=== PATIENT | female | born 1985 | race Caucasian/White ===

== ENCOUNTER 2021-02-27 16:12 | Inpatient (IN) | payer MEDICARE, MEDICAID, SELFPAY ==
[2021-02-27] VITALS (7 sets, daily range): BP systolic 98–179; BP diastolic 76–122; PULSE 91–103; RESP 16–18; TEMP 36.4; O2SAT 94–96; BMI 34.2; BMI 32.8
--- NOTE | ~2021-02-27 | CT_ITS ---
EXAMINATION: CT HEAD WITHOUT CONTRAST CLINICAL INFORMATION: Status post anticoagulation evaluate for hemorrhagic conversion of brain infarct COMPARISON: CT head 02/27/2021 TECHNIQUE: Contiguous axial imaging was performed from the skull base to vertex without intravenous administration of contrast. Coronal and sagittal reformatted images are performed at the CT scanner. [This CT examination was performed using dose optimization techniques as appropriate, variously including the following: *Automated exposure control *Adjustment of mA and/or kV according to patient size (this includes techniques or standardized protocols for targeted exams where dose is matched to indication/reason for exam; i.e. extremities or head) *Use of iterative reconstruction technique] DLP: 873 mGy-cm. FINDINGS: There is no intracranial hemorrhage. The small infarct in the left posterior parasagittal parietal lobe is unchanged. No change in the chronic appearing small infarct in the right occipital lobe. There are change in the small chronic infarct in the right cerebellum and right external capsule. No extra-axial fluid collections are identified. No hydrocephalus or mass effect. Little-white differentiation is maintained. There is no osseous abnormality. CT/CT head/brain wo con IMPRESSION: No acute intracranial hemorrhage. No change in the infarct in the left posterior parasagittal parietal lobe.
--- NOTE | ~2021-02-27 | MR_ITS ---
EXAMINATION: MR BRAIN WITHOUT AND WITH CONTRAST CLINICAL INFORMATION: Multiple infarcts on CT. COMPARISON: Head CT 02/28/2021. TECHNIQUE: Multiplanar, multisequence imaging of the brain was performed before and after the intravenous administration of 9 mL of Gadavist. FINDINGS: Areas of elevated diffusivity with associated heterogeneous partly gyriform enhancement are seen within the left parietal lobe and right occipital lobe, most compatible with subacute infarcts. A subacute lacunar infarct is seen within the right cerebellum. Small chronic infarct is seen in the right cerebellum and just lateral to the right putamen and within the external capsule region. The ventricles are normal in size and configuration without evidence of hydrocephalus. There is no mass or mass effect. There is no hemorrhage. The cerebellar tonsils are normally positioned above the foramen magnum. No masslike enhancement is seen. The major arterial flow voids appear preserved at the skull base. There is surgical mesh mucosal thickening within the maxillary sinuses with associated layering fluid. A small amount of mastoid fluid is present bilaterally. MR/MR head/brain wo/w con IMPRESSION: Foci of elevated diffusion signal and associated enhancement is seen in the left frontal lobe and right occipital lobe, most typical of infarcts in the subacute stage. Consider follow-up MRI in 6-8 weeks to document resolution of enhancement. Small chronic infarct is seen in the right cerebellum and in the right external capsule region. No evidence of acute infarction. Given the multiple vascular territories of subacute and chronic infarction a cardioembolic etiology is suspected.
--- NOTE | ~2021-02-27 | XR_ITS ---
EXAMINATION: XR CHEST CLINICAL INFORMATION: Shortness of breath COMPARISON: None TECHNIQUE: Frontal view of the chest was obtained. FINDINGS: No significant abnormality is noted involving the heart, lungs, mediastinum, bony thorax or soft tissues. XR/XR chest 1V IMPRESSION: Unremarkable examination.
--- NOTE | ~2021-02-27 | CT_ITS ---
EXAMINATION: CT ABDOMEN AND PELVIS WITHOUT CONTRAST CLINICAL INFORMATION: Acute renal and hepatic failure. COMPARISON: None TECHNIQUE: Multidetector volumetric imaging was performed from the superior aspect of the liver through the pubic symphysis. Sagittal and coronal reformatted images were obtained on the technologist's workstation. This CT examination was performed using dose optimization techniques as appropriate, variously including the following: *Automated exposure control *Adjustment of mA and/or kV according to patient size (this includes techniques or standardized protocols for targeted exams where dose is matched to indication/reason for exam; i.e. extremities or head) *Use of iterative reconstruction technique DLP: 740 mGy-cm FINDINGS: LUNG BASES: The visualized lung bases are unremarkable. LIVER, GALLBLADDER, AND BILIARY TREE: The liver is enlarged measuring 23 cm CC dimension. The liver is normal in shape and attenuation. No focal hepatic lesion or biliary ductal dilatation is present. Cholecystectomy. PANCREAS: Mild fatty atrophy of the pancreas with no focal abnormality. No ductal dilatation. SPLEEN: Unremarkable. ADRENAL GLANDS: Unremarkable. KIDNEYS AND URETERS: The kidneys are normal in size, shape, and attenuation. No hydronephrosis, hydroureter, or calculi seen. No perinephric stranding. BLADDER: Unremarkable. GASTROINTESTINAL TRACT: The small and large bowel are unremarkable. The appendix is unremarkable. ABDOMINAL WALL: No significant hernia is appreciated. LYMPH NODES: Normal. VASCULAR: Unremarkable. PELVIC VISCERA: Anteverted uterus. There is an IUD in place in the uterus which appears flipped in positioning, with the cross of the T portion at the lower uterine segment and the straight portion near the fundus. OSSEOUS STRUCTURES: No acute or suspicious osseous abnormality. CT/CT abdomen pelvis wo con IMPRESSION: No acute findings in the abdomen or pelvis. No inflammatory changes. There is hepatomegaly. No hepatic lesion. IUD within the uterus. The IUD position is flipped, with the cross T portion at the lower uterine segment in the straight portion extending toward the fundus.
--- NOTE | ~2021-02-27 | CT_ITS ---
EXAMINATION: CT CHEST WITHOUT CONTRAST CLINICAL INFORMATION: HYPOXIA ? mass ? occult pna? pericardial fluid COMPARISON: Chest x-ray 02/27/2021. CT abdomen pelvis 02/27/2021 TECHNIQUE: Multidetector volumetric CT imaging of the chest was done. Axial MIP volume rendering provided. Sagittal and coronal reformatted images were obtained. This CT examination was performed using dose optimization techniques as appropriate, variously including the following: *Automated exposure control *Adjustment of mA and/or kV according to patient size (this includes techniques or standardized protocols for targeted exams where dose is matched to indication/reason for exam; i.e. extremities or head) *Use of iterative reconstruction technique DLP: 350 mGy-cm FINDINGS: LUNGS: The lungs are clear with no evidence of inflammation or nodules. MEDIASTINUM: No mediastinal mass or significant lymphadenopathy. The heart size is normal. No pericardial effusion. PLEURA: There is no pleural effusion. No pleural mass or thickening. AXILLA: No mass or significant lymphadenopathy. UPPER ABDOMEN: Status post Cholecystectomy.. Visualized portions of liver, spleen, pancreas and kidneys are unremarkable. OSSEOUS STRUCTURES: Unremarkable. CT/CT chest wo con IMPRESSION: Normal CT of chest.
--- NOTE | ~2021-02-27 | US_ITS ---
EXAMINATION: US VENOUS ULTRASOUND WITH DOPPLER LOWER EXTREMITY, BILATERAL CLINICAL INFORMATION: Elevated d-dimer. Hypoxemia COMPARISON: None TECHNIQUE: Ultrasound of the deep veins is performed from the hip to the calf with compression sonography and color and pulse Doppler assessment. Spectral analysis with color-flow imaging is performed. FINDINGS: RIGHT: There is normal venous compression and respiratory variation and augmented flow. The visualized common femoral vein, superficial femoral vein, profunda femoral vein, popliteal vein, and the trifurcation region shows no evidence of deep venous thrombosis. There is no significant popliteal fossa cyst. LEFT: There is normal venous compression and respiratory variation and augmented flow. The visualized common femoral vein, superficial femoral vein, profunda femoral vein, popliteal vein, and the trifurcation region shows no evidence of deep venous thrombosis. There is no significant popliteal fossa cyst. If the patient's symptoms persist, followup ultrasound in 5 days 7 days might be of value to exclude proximal propagation from a non-visualized calf vein. US/US venous duplex LE BI IMPRESSION: No DVT demonstrated in the bilateral lower extremity.
--- NOTE | ~2021-02-27 | NM_ITS ---
EXAMINATION: NM LUNG IMAGE PERFUSION CLINICAL INFORMATION: Hypoxemia. Elevated D-dimer. Rule out pulmonary embolism. COMPARISON: Previous chest x-ray and chest CT without contrast 02/27/2021. TECHNIQUE: The patient was administered 4 mCi of technetium 99m labeled MAA for perfusion imaging. This was performed in multiple projections. Ventilation imaging was not performed. FINDINGS: There is heterogeneous perfusion with multiple bilateral small to moderate segmental perfusion defects seen, left side greater than right. No corresponding lung abnormality is seen on chest x-ray or chest CT scan and this cannot be compared with ventilation imaging. This is an intermediate to high probability scan for pulmonary embolism. NM/NM pul perfusion IMPRESSION: Intermediate to high probability scan for pulmonary embolism. Preliminary reading of multiple subsegmental defects favoring high probability was provided by Dr. Sanchez to Dr. Roche at 6:53 PM on 02/28/2021.
--- NOTE | ~2021-02-27 | CT_ITS ---
EXAMINATION: CT HEAD WITHOUT CONTRAST CLINICAL INFORMATION: Headache with hypertension COMPARISON: None TECHNIQUE: Contiguous axial imaging was performed from the skull base to vertex without intravenous administration of contrast. This CT examination was performed using dose optimization techniques as appropriate, variously including the following: *Automated exposure control *Adjustment of mA and/or kV according to patient size (this includes techniques or standardized protocols for targeted exams where dose is matched to indication/reason for exam; i.e. extremities or head) *Use of iterative reconstruction technique DLP: 786 mGy-cm FINDINGS: There is no evidence of acute intracranial hemorrhage or territorial infarction. No abnormal mass effect or midline shift is seen. Little to white matter differentiation is well preserved. No extra-axial fluid collections are identified. The ventricles are normal in size. There is focal hypodensity within the left posterior parasagittal lobe suggestive of a subacute infarct. Small chronic appearing infarct present within the right occipital lobe. There are couple small chronic infarcts present within the right cerebellum. Chronic infarct within the right anterior external capsule. The osseous structures and soft tissues are normal. The mastoid air cells and visualized portions of the paranasal sinuses are well aerated. CT/CT head/brain wo con IMPRESSION: * No acute intracranial hemorrhage. * Probable subacute infarct within the left posterior parasagittal parietal lobe. 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 This critical result was discussed with Hal Mtz MD at 02/27/2021 10:35 PM and it was ascertained that the content and urgency of the report was understood at the time of direct communication.
[2021-02-27] MEDS: Naloxone HCl Nasal 4 MG SPRAY NOSTRILALT (16:56)
--- NOTE | 2021-02-27 17:14 | ED.GENADULT ---
HPI - General Adult General Chief complaint: General Medical Stated complaint: headache Time Seen by Provider: 02/27/21 16:32 Source: patient Mode of arrival: EMS Limitations: no limitations History of Present Illness HPI narrative: Patient brought by EMS as patient been feeling tired and sleepy with migraine headache and [facility] wanted [facility] to be checked. Patient denied otherwise any other symptoms or complaints denies any use of drugs was found sleeping in the ER saturating 85% at room air patient does have a cough for last few days has not been vaccinated patient denies any use of drugs no history of asthma Related Data Allergies Allergy/AdvReac Type Severity Reaction Status Date / Time No Known Allergies Allergy Verified 02/27/21 16:33 Review of Systems Review of Systems: Constitutional : No Weight loss, No Fever, No Chills ENT/Mouth : No sore throat, No Rhinorrhea Eyes: No Eye Pain, No Swelling Cardiovascular : No Chest Pain, no palpitations Respiratory : + Cough, No Sputum, + shortness of breath Gastrointestinal : + Nausea, No Vomiting, No Diarrhea, No abdominal Pain, no black stools Genitourinary : No Dysuria, No Urinary Frequency Musculoskeletal : No joint pain, No Myalgias, No Joint Swelling Skin : No Skin Lesions, No rash Neuro : + Weakness, No Numbness, No Dizziness, +Headache Psych : No Anxiety/Panic, No Depression Heme/Lymph: No Bruising, No Lymphadenopathy Endocrine : No Polyuria, No Polydipsia All other systems reviewed and are negative Yes all other systems are reviewed and are negative [facility] Social History Social History Advance Directives: No Advance Directives Information Provided: No Patient : No Physical Exam Vital Signs: Vital Signs: Last Vital Signs Temp 98.2 F 02/28/21 00:00 Pulse 92 02/28/21 00:00 Resp 16 02/28/21 00:00 BP 138/89 02/28/21 00:00 Pulse Ox 97 02/28/21 00:00 Body Mass Index 32.8 Appearance: Alert. Oriented X3. No acute distress. Eyes: Pupils 2 mm bilaterally equal reactive to light, No Nystagmus ENT: Pharynx normal. Oral Mucosa moist Neck: Normal inspection. Neck supple. CVS: Normal heart rate and rhythm. Pulses normal. Respiratory: No respiratory distress. Equal air entry bilateral, no wheezing/rales/rhonchi Abdomen: Soft and nontender. Bowel sounds are present, no mass palpable, no CVA tenderness Skin: Skin warm and dry. Normal skin color. Normal skin turgor. Extremities: No lower extremity edema. No calf tenderness Neuro: Oriented X 3. No motor deficit. No sensory deficit.No cerebellar signs , cranial nerves II-XII intact Medical Decision Making MDM Narrative Medical decision making narrative: Patient became very lethargic claiming that it is because of migraine she feels sleepy after taking Imitrex headache is getting better. Workup showed leukocytosis lactic acidosis metabolic acidosis respiratory hypoxia elevated LFT and SERGIO also CK was high suggestive of rhabdomyolysis. Patient has no source of infection treated with IV Zosyn and Rocephin fluids more than 30 cc/kilogram were given no acute ischemic changes. Patient admits using cocaine last night which was positive in the urine CT head showed bilateral infarcts subacute on the right side and chronic on the left side possible cause of altered mental status could be bilateral infarcts versus substance abuse versus metabolic encephalopathy with metabolic acidosis and rhabdomyolysis. Bicarb drip started in the ER. Case discussed with product development engineer admit to ICU Case discussed Dr. Vergara neurologist advised to give aspirin Lab Data Lab results reviewed: Yes I reviewed the patient's lab results. Result diagrams: 02/27/21 17:43 02/27/21 22:00 Labs: Lab Results 02/27/21 02/27/21 02/27/21 Range/Units 16:53 17:43 17:43 WBC 22.6 H (4.8-10.8) X10*3/uL RBC 5.19 (4.20-5.50) X10*6/uL Hgb 13.4 (12.0-16.0) g/dl Hct 45.3 (37-47) % MCV 87.3 (80-98) fL MCH 25.8 L (27.0-33.0) pg MCHC 29.6 L (31.0-35.0) g/dl RDW 14.6 (11.0-16.0) % Plt Count 379 (160-400) X10*3/uL MPV 10.2 (9.4-12.3) fL Immature Gran % (Auto) 2.2 H (0.0-0.4) % Neut % (Auto) 80.9 H (45-73) % Lymph % (Auto) 8.6 L (20-40) % [place] % (Auto) 8.1 (2-11) % Eos % (Auto) 0.0 (0-4) % Baso % (Auto) 0.2 (0-2) % Lymph # (Auto) 1.9 (1.2-4.9) X10*3/uL [place] # (Auto) 1.8 H (0.1-1.2) X10*3/uL Eos # (Auto) 0.0 (0.0-0.4) X10*3/uL Baso # (Auto) 0.0 (0.0-0.2) X10*3/uL Abs Immat Gran (auto) 0.50 H (0.00-0.03) X10*3/uL Absolute Neuts (auto) 18.3 H (2.0-8.3) X10*3/uL Absolute Nucleated RBC 0.030 H (0.0-0.012) X10*3/uL Nucleated RBC % (auto) 0.1 (0.0-0.2) /100WBC Smear Tech's Comments VERIFIED PT 12.1 (9.9-13.0) SEC INR 1.1 (0.9-1.1) APTT 30.5 (24.1-38.0) SEC D-Dimer 401 NG/ML VBG pH (7.32-7.43) VBG pCO2 mmHg VBG pO2 mmHg VBG HCO3 (22-26) mmol/L VBG O2 Saturation % VBG Base Excess mmol/L Sodium (135-145) mmol/L Potassium (3.3-5.1) mmol/L Chloride (96-108) mmol/L Carbon Dioxide (22-29) mmol/L Anion Gap (12-20) BUN (9-16) mg/dL Creatinine (0.5-1.4) mg/dL Estim Creat Clear Calc Estimated GFR Random Glucose (60-115) mg/dL Lactic Acid (0.5-2.0) mmol/L Lactic Acid Fup @ 2Hr (0.5-2.0) mmol/L Calcium (8.4-10.2) mg/dL Total Bilirubin (0.0-1.0) mg/dL Direct Bilirubin (0.0-0.5) mg/dL AST (5-31) U/L ALT (0-31) U/L Alkaline Phosphatase (39-117) U/L Ammonia (13-55) umol/L Total Creatine Kinase (26-140) U/L Troponin I High Sens (<3.5-17.0) ng/L C-Reactive Protein (< or = 0.50) mg/dL Total Protein (6.5-8.0) g/dL Albumin (3.5-5.0) g/dL TSH (0.32-4.0) uIU/mL Beta HCG, Quant mIU/mL Urine Color Urine Appearance Urine pH (5.0-8.0) Ur Specific [place] (1.005-1.025) Urine Protein (NEG-TRACE) MG/DL Urine Glucose (UA) (NEG) MG/DL Urine Ketones (NEG) MG/DL Urine Blood (NEG) Urine Nitrite (NEG) Ur Leukocyte Esterase (NEG) Urine RBC (0) /HPF Urine WBC (0-4) /HPF Ur Squamous Epith Cells /LPF Amorphous Sediment /LPF Urine Bacteria /LPF Urine Opiates Screen (Not Detect) Urine Fentanyl Screen (Not Detect) Acetaminophen (<30) mcg/mL Ur Barbiturates Screen (Not Detect) Ur Phencyclidine Scrn (Not Detect) Ur Amphetamines Screen (Not Detect) U Benzodiazepines Scrn (Not Detect) Urine Cocaine Screen (Not Detect) U Marijuana (THC) Screen (Not Detect) COVID-19 ([place]) Negative (Negative) COVID-19 Clin Com See Note 02/27/21 02/27/21 02/27/21 Range/Units 17:43 17:43 17:50 WBC (4.8-10.8) X10*3/uL RBC (4.20-5.50) X10*6/uL Hgb (12.0-16.0) g/dl Hct (37-47) % MCV (80-98) fL MCH (27.0-33.0) pg MCHC (31.0-35.0) g/dl RDW (11.0-16.0) % Plt Count (160-400) X10*3/uL MPV (9.4-12.3) fL Immature Gran % (Auto) (0.0-0.4) % Neut % (Auto) (45-73) % Lymph % (Auto) (20-40) % [place] % (Auto) (2-11) % Eos % (Auto) (0-4) % Baso % (Auto) (0-2) % Lymph # (Auto) (1.2-4.9) X10*3/uL [place] # (Auto) (0.1-1.2) X10*3/uL Eos # (Auto) (0.0-0.4) X10*3/uL Baso # (Auto) (0.0-0.2) X10*3/uL Abs Immat Gran (auto) (0.00-0.03) X10*3/uL Absolute Neuts (auto) (2.0-8.3) X10*3/uL Absolute Nucleated RBC (0.0-0.012) X10*3/uL Nucleated RBC % (auto) (0.0-0.2) /100WBC Smear Tech's Comments PT (9.9-13.0) SEC INR (0.9-1.1) APTT (24.1-38.0) SEC D-Dimer NG/ML VBG pH 7.15 L* (7.32-7.43) VBG pCO2 63 mmHg VBG pO2 38 mmHg VBG HCO3 22 (22-26) mmol/L VBG O2 Saturation 49.0 % VBG Base Excess -7.3 mmol/L Sodium 135 (135-145) mmol/L Potassium 6.3 H* (3.3-5.1) mmol/L Chloride 102 (96-108) mmol/L Carbon Dioxide 22 (22-29) mmol/L Anion Gap 17 (12-20) BUN 22 H (9-16) mg/dL Creatinine 1.62 H (0.5-1.4) mg/dL Estim Creat Clear Calc 54.4 Estimated GFR 36 Random Glucose 103 (60-115) mg/dL Lactic Acid (0.5-2.0) mmol/L Lactic Acid Fup @ 2Hr (0.5-2.0) mmol/L Calcium 8.8 (8.4-10.2) mg/dL Total Bilirubin 0.2 (0.0-1.0) mg/dL Direct Bilirubin < 0.2 (0.0-0.5) mg/dL AST 293 H (5-31) U/L ALT 225 H (0-31) U/L Alkaline Phosphatase 114 (39-117) U/L Ammonia (13-55) umol/L Total Creatine Kinase (26-140) U/L Troponin I High Sens 87.2 H* (<3.5-17.0) ng/L C-Reactive Protein (< or = 0.50) mg/dL Total Protein 8.3 H (6.5-8.0) g/dL Albumin 4.6 (3.5-5.0) g/dL TSH (0.32-4.0) uIU/mL Beta HCG, Quant < 2 mIU/mL Urine Color Urine Appearance Urine pH (5.0-8.0) Ur Specific [place] (1.005-1.025) Urine Protein (NEG-TRACE) MG/DL Urine Glucose (UA) (NEG) MG/DL Urine Ketones (NEG) MG/DL Urine Blood (NEG) Urine Nitrite (NEG) Ur Leukocyte Esterase (NEG) Urine RBC (0) /HPF Urine WBC (0-4) /HPF Ur Squamous Epith Cells /LPF Amorphous Sediment /LPF Urine Bacteria /LPF Urine Opiates Screen (Not Detect) Urine Fentanyl Screen (Not Detect) Acetaminophen < 1 (<30) mcg/mL Ur Barbiturates Screen (Not Detect) Ur Phencyclidine Scrn (Not Detect) Ur Amphetamines Screen (Not Detect) U Benzodiazepines Scrn (Not Detect) Urine Cocaine Screen (Not Detect) U Marijuana (THC) Screen (Not Detect) COVID-19 ([place]) (Negative) COVID-19 Clin Com 02/27/21 02/27/21 02/27/21 Range/Units 19:20 19:20 20:27 WBC (4.8-10.8) X10*3/uL RBC (4.20-5.50) X10*6/uL Hgb (12.0-16.0) g/dl Hct (37-47) % MCV (80-98) fL MCH (27.0-33.0) pg MCHC (31.0-35.0) g/dl RDW (11.0-16.0) % Plt Count (160-400) X10*3/uL MPV (9.4-12.3) fL Immature Gran % (Auto) (0.0-0.4) % Neut % (Auto) (45-73) % Lymph % (Auto) (20-40) % [place] % (Auto) (2-11) % Eos % (Auto) (0-4) % Baso % (Auto) (0-2) % Lymph # (Auto) (1.2-4.9) X10*3/uL [place] # (Auto) (0.1-1.2) X10*3/uL Eos # (Auto) (0.0-0.4) X10*3/uL Baso # (Auto) (0.0-0.2) X10*3/uL Abs Immat Gran (auto) (0.00-0.03) X10*3/uL Absolute Neuts (auto) (2.0-8.3) X10*3/uL Absolute Nucleated RBC (0.0-0.012) X10*3/uL Nucleated RBC % (auto) (0.0-0.2) /100WBC Smear Tech's Comments PT (9.9-13.0) SEC INR (0.9-1.1) APTT (24.1-38.0) SEC D-Dimer NG/ML VBG pH (7.32-7.43) VBG pCO2 mmHg VBG pO2 mmHg VBG HCO3 (22-26) mmol/L VBG O2 Saturation % VBG Base Excess mmol/L Sodium (135-145) mmol/L Potassium (3.3-5.1) mmol/L Chloride (96-108) mmol/L Carbon Dioxide (22-29) mmol/L Anion Gap (12-20) BUN (9-16) mg/dL Creatinine (0.5-1.4) mg/dL Estim Creat Clear Calc Estimated GFR Random Glucose (60-115) mg/dL Lactic Acid 4.1 H* (0.5-2.0) mmol/L Lactic Acid Fup @ 2Hr (0.5-2.0) mmol/L Calcium (8.4-10.2) mg/dL Total Bilirubin (0.0-1.0) mg/dL Direct Bilirubin (0.0-0.5) mg/dL AST (5-31) U/L ALT (0-31) U/L Alkaline Phosphatase (39-117) U/L Ammonia 44 (13-55) umol/L Total Creatine Kinase (26-140) U/L Troponin I High Sens (<3.5-17.0) ng/L C-Reactive Protein (< or = 0.50) mg/dL Total Protein (6.5-8.0) g/dL Albumin (3.5-5.0) g/dL TSH (0.32-4.0) uIU/mL Beta HCG, Quant mIU/mL Urine Color Urine Appearance Urine pH (5.0-8.0) Ur Specific [place] (1.005-1.025) Urine Protein (NEG-TRACE) MG/DL Urine Glucose (UA) (NEG) MG/DL Urine Ketones (NEG) MG/DL Urine Blood (NEG) Urine Nitrite (NEG) Ur Leukocyte Esterase (NEG) Urine RBC (0) /HPF Urine WBC (0-4) /HPF Ur Squamous Epith Cells /LPF Amorphous Sediment /LPF Urine Bacteria /LPF Urine Opiates Screen Not Detected (Not Detect) Urine Fentanyl Screen POSITIVE H (Not Detect) Acetaminophen (<30) mcg/mL Ur Barbiturates Screen Not Detected (Not Detect) Ur Phencyclidine Scrn Not Detected (Not Detect) Ur Amphetamines Screen Not Detected (Not Detect) U Benzodiazepines Scrn Not Detected (Not Detect) Urine Cocaine Screen POSITIVE H (Not Detect) U Marijuana (THC) Screen Not Detected (Not Detect) COVID-19 ([place]) (Negative) COVID-19 Clin Com 02/27/21 02/27/21 02/27/21 Range/Units 20:27 22:00 22:00 WBC (4.8-10.8) X10*3/uL RBC (4.20-5.50) X10*6/uL Hgb (12.0-16.0) g/dl Hct (37-47) % MCV (80-98) fL MCH (27.0-33.0) pg MCHC (31.0-35.0) g/dl RDW (11.0-16.0) % Plt Count (160-400) X10*3/uL MPV (9.4-12.3) fL Immature Gran % (Auto) (0.0-0.4) % Neut % (Auto) (45-73) % Lymph % (Auto) (20-40) % [place] % (Auto) (2-11) % Eos % (Auto) (0-4) % Baso % (Auto) (0-2) % Lymph # (Auto) (1.2-4.9) X10*3/uL [place] # (Auto) (0.1-1.2) X10*3/uL Eos # (Auto) (0.0-0.4) X10*3/uL Baso # (Auto) (0.0-0.2) X10*3/uL Abs Immat Gran (auto) (0.00-0.03) X10*3/uL Absolute Neuts (auto) (2.0-8.3) X10*3/uL Absolute Nucleated RBC (0.0-0.012) X10*3/uL Nucleated RBC % (auto) (0.0-0.2) /100WBC Smear Tech's Comments PT (9.9-13.0) SEC INR (0.9-1.1) APTT (24.1-38.0) SEC D-Dimer NG/ML VBG pH (7.32-7.43) VBG pCO2 mmHg VBG pO2 mmHg VBG HCO3 (22-26) mmol/L VBG O2 Saturation % VBG Base Excess mmol/L Sodium 140 (135-145) mmol/L Potassium 4.5 D (3.3-5.1) mmol/L Chloride 108 (96-108) mmol/L Carbon Dioxide 20 L (22-29) mmol/L Anion Gap 17 (12-20) BUN 23 H (9-16) mg/dL Creatinine 1.61 H (0.5-1.4) mg/dL Estim Creat Clear Calc 54.7 Estimated GFR 36 Random Glucose 89 (60-115) mg/dL Lactic Acid (0.5-2.0) mmol/L Lactic Acid Fup @ 2Hr 3.9 H* (0.5-2.0) mmol/L Calcium 8.5 (8.4-10.2) mg/dL Total Bilirubin (0.0-1.0) mg/dL Direct Bilirubin (0.0-0.5) mg/dL AST (5-31) U/L ALT (0-31) U/L Alkaline Phosphatase (39-117) U/L Ammonia (13-55) umol/L Total Creatine Kinase 01667 H (26-140) U/L Troponin I High Sens (<3.5-17.0) ng/L C-Reactive Protein 5.41 H (< or = 0.50) mg/dL Total Protein (6.5-8.0) g/dL Albumin (3.5-5.0) g/dL TSH 0.68 (0.32-4.0) uIU/mL Beta HCG, Quant mIU/mL Urine Color YELLOW Urine Appearance HAZY Urine pH 5.5 (5.0-8.0) Ur Specific [place] >= 1.030 H (1.005-1.025) Urine Protein 2+ H (NEG-TRACE) MG/DL Urine Glucose (UA) 100 H (NEG) MG/DL Urine Ketones 5 (NEG) MG/DL Urine Blood 3+ H (NEG) Urine Nitrite NEG (NEG) Ur Leukocyte Esterase NEG (NEG) Urine RBC 1-4 (0) /HPF Urine WBC 0 (0-4) /HPF Ur Squamous Epith Cells 3+ /LPF Amorphous Sediment 1+ /LPF Urine Bacteria 2+ /LPF Urine Opiates Screen (Not Detect) Urine Fentanyl Screen (Not Detect) Acetaminophen (<30) mcg/mL Ur Barbiturates Screen (Not Detect) Ur Phencyclidine Scrn (Not Detect) Ur Amphetamines Screen (Not Detect) U Benzodiazepines Scrn (Not Detect) Urine Cocaine Screen (Not Detect) U Marijuana (THC) Screen (Not Detect) COVID-19 ([place]) (Negative) COVID-19 Clin Com 02/27/21 02/27/21 Range/Units 22:00 22:05 WBC (4.8-10.8) X10*3/uL RBC (4.20-5.50) X10*6/uL Hgb (12.0-16.0) g/dl Hct (37-47) % MCV (80-98) fL MCH (27.0-33.0) pg MCHC (31.0-35.0) g/dl RDW (11.0-16.0) % Plt Count (160-400) X10*3/uL MPV (9.4-12.3) fL Immature Gran % (Auto) (0.0-0.4) % Neut % (Auto) (45-73) % Lymph % (Auto) (20-40) % [place] % (Auto) (2-11) % Eos % (Auto) (0-4) % Baso % (Auto) (0-2) % Lymph # (Auto) (1.2-4.9) X10*3/uL [place] # (Auto) (0.1-1.2) X10*3/uL Eos # (Auto) (0.0-0.4) X10*3/uL Baso # (Auto) (0.0-0.2) X10*3/uL Abs Immat Gran (auto) (0.00-0.03) X10*3/uL Absolute Neuts (auto) (2.0-8.3) X10*3/uL Absolute Nucleated RBC (0.0-0.012) X10*3/uL Nucleated RBC % (auto) (0.0-0.2) /100WBC Smear Tech's Comments PT (9.9-13.0) SEC INR (0.9-1.1) APTT (24.1-38.0) SEC D-Dimer NG/ML VBG pH 7.26 L (7.32-7.43) VBG pCO2 37 mmHg VBG pO2 42 mmHg VBG HCO3 17 L (22-26) mmol/L VBG O2 Saturation 60.0 % VBG Base Excess -8.7 mmol/L Sodium (135-145) mmol/L Potassium (3.3-5.1) mmol/L Chloride (96-108) mmol/L Carbon Dioxide (22-29) mmol/L Anion Gap (12-20) BUN (9-16) mg/dL Creatinine (0.5-1.4) mg/dL Estim Creat Clear Calc Estimated GFR Random Glucose (60-115) mg/dL Lactic Acid (0.5-2.0) mmol/L Lactic Acid Fup @ 2Hr (0.5-2.0) mmol/L Calcium (8.4-10.2) mg/dL Total Bilirubin (0.0-1.0) mg/dL Direct Bilirubin (0.0-0.5) mg/dL AST (5-31) U/L ALT (0-31) U/L Alkaline Phosphatase (39-117) U/L Ammonia (13-55) umol/L Total Creatine Kinase (26-140) U/L Troponin I High Sens 241.9 H* D (<3.5-17.0) ng/L C-Reactive Protein (< or = 0.50) mg/dL Total Protein (6.5-8.0) g/dL Albumin (3.5-5.0) g/dL TSH (0.32-4.0) uIU/mL Beta HCG, Quant mIU/mL Urine Color Urine Appearance Urine pH (5.0-8.0) Ur Specific [place] (1.005-1.025) Urine Protein (NEG-TRACE) MG/DL Urine Glucose (UA) (NEG) MG/DL Urine Ketones (NEG) MG/DL Urine Blood (NEG) Urine Nitrite (NEG) Ur Leukocyte Esterase (NEG) Urine RBC (0) /HPF Urine WBC (0-4) /HPF Ur Squamous Epith Cells /LPF Amorphous Sediment /LPF Urine Bacteria /LPF Urine Opiates Screen (Not Detect) Urine Fentanyl Screen (Not Detect) Acetaminophen (<30) mcg/mL Ur Barbiturates Screen (Not Detect) Ur Phencyclidine Scrn (Not Detect) Ur Amphetamines Screen (Not Detect) U Benzodiazepines Scrn (Not Detect) Urine Cocaine Screen (Not Detect) U Marijuana (THC) Screen (Not Detect) COVID-19 ([place]) (Negative) COVID-19 Clin Com Imaging Data CT scan - head: Radiologist's impression: [address] [address] [address] Scan Report Signed Patient: Brad Barraza MR#: [id number] : 1985 Acct:[id number] Age/Sex: 35 / F ADM Date: 02/27/21 Loc: HO.ED Attending Dr: Ordering Physician: Hal Pro MD Date of Service: 02/27/21 Procedure(s): CT head/brain wo con Accession Number(s): [id number] cc: Hal Pro MD~ EXAMINATION: CT HEAD WITHOUT CONTRAST CLINICAL INFORMATION: Headache with hypertension? COMPARISON: None TECHNIQUE: Contiguous axial imaging was performed from the skull base to vertex without intravenous administration of contrast. This CT examination was performed using dose optimization techniques as appropriate, variously including the following: *Automated exposure control *Adjustment of mA and/or kV according to patient size (this includes techniques or standardized protocols for targeted exams where dose is matched to indication/reason for exam; i.e. extremities or head) *Use of iterative reconstruction technique DLP: 786 mGy-cm FINDINGS: There is no evidence of acute intracranial hemorrhage or territorial infarction. No abnormal mass effect or midline shift is seen. Little to white matter differentiation is well preserved. No extra-axial fluid collections are identified. The ventricles are normal in size. There is focal hypodensity within the left posterior parasagittal lobe suggestive of a subacute infarct. Small chronic appearing infarct present within the right occipital lobe. There are couple small chronic infarcts present within the right cerebellum. Chronic infarct within the right anterior external capsule. The osseous structures and soft tissues are normal. The mastoid air cells and visualized portions of the paranasal sinuses are well aerated. ? CT/CT head/brain wo con IMPRESSION: *? No acute intracranial hemorrhage. *? Probable subacute infarct within the left posterior parasagittal parietal lobe. *? 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 ? This critical result was discussed with Hal Mtz MD at 02/27/2021 10:35 PM and it was ascertained that the content and urgency of the report was understood at the time of direct communication. Dictated By: JULIANNA NEGRON MD Signed By: <Electronically signed by JULIANNA NEGRON MD in OV> 02/27/21 1361 ECG Data Attestation: I personally reviewed and interpreted this ECG as follows: Interpretation: Normal sinus rhythm heart rate 96 beats per minute QT interval 495 slightly prolonged no acute ST T wave changes no acute ischemia Critical Care Time Critical Care Time Critical Care Time: Yes Total Critical Care Time: 60 Attestation: I spent 60 minutes of critical care, with interventions, assessments, speaking to patient, consultants, and family. Discharge Plan Discharge Clinical Impression: Substance abuse, Acute metabolic encephalopathy, Acute hyperkalemia Acute renal failure Qualifiers: Acute renal failure type: unspecified Qualified Code(s): N17.9 - Acute kidney failure, unspecified Rhabdomyolysis Qualifiers: Rhabdomyolysis type: non-traumatic Qualified Code(s): M62.82 - Rhabdomyolysis Sepsis Qualifiers: Sepsis type: sepsis due to unspecified organism Sepsis acute organ dysfunction status: with acute organ dysfunction Severe sepsis acute organ dysfunction type: acute respiratory failure Acute respiratory failure type: with hypoxia Severe sepsis shock status: without septic shock Qualified Code(s): A41.9 - Sepsis, unspecified organism Patient Disposition: Admitted As Inpatient
[2021-02-27 17:15] LABS: COVID-19 Test Negative (Negative); IDNOW Serial# 55D5AD1C
--- NOTE | 2021-02-27 17:16 | ECG_ITS ---
Test Reason : hypoxia Blood Pressure : / mmHG Vent. Rate : 096 BPM Atrial Rate : 096 BPM P-R Int : 172 ms QRS Dur : 090 ms QT Int : 392 ms P-R-T Axes : 064 072 046 degrees QTc Int : 495 ms Normal sinus rhythm Prolonged QT Abnormal ECG No previous ECGs available Referred By: René Gaston Electronically Signed By:FRANCI JAMES
[2021-02-27 17:51] LABS: Basophils Percent Auto 0.2 % (0-2); Hematocrit 45.3 % (37-47); Hemoglobin 13.4 g/dl (12.0-16.0); Imm Gran Pct Auto 2.2 % (0.0-0.4); Lymphocytes Absolute Auto 1.9 X10*3/uL (1.2-4.9); Lymphocytes Percent Auto 8.6 % (20-40); MANUAL DIFF FLAG SCAN; Mean Corpuscular HGB Conc 29.6 g/dl (31.0-35.0); Mean Corpuscular Hemoglobin 25.8 pg (27.0-33.0); Mean Corpuscular Volume 87.3 fL (80-98); Mean Platelet Volume 10.2 fL (9.4-12.3); Monocytes Absolute Auto 1.8 X10*3/uL (0.1-1.2); Monocytes Percent Auto 8.1 % (2-11); NRBC Pct Auto 0.1 /100WBC (0.0-0.2); Neutrophils Absolute Auto 18.3 X10*3/uL (2.0-8.3); Neutrophils Percent Auto 80.9 % (45-73); Platelet Count 379 X10*3/uL (160-400); Red Blood Count 5.19 X10*6/uL (4.20-5.50); Red Cell Distribution Width 14.6 % (11.0-16.0); SCAN SMEAR FLAG 1; White Blood Count 22.6 X10*3/uL (4.8-10.8)
[2021-02-27 17:59] LABS: VBG Base Excess -7.3 mmol/L; VBG HCO3 22 mmol/L (22-26); VBG pCO2 63 mmHg; VBG pH 7.15 (7.32-7.43); VBG pO2 38 mmHg
[2021-02-27 18:04] LABS: D Dimer 401 NG/ML
[2021-02-27 18:08] LABS: Venous Blood Gas Refer to POC result
[2021-02-27 18:22] LABS: Alanine Aminotransferase 225 U/L (0-31); Albumin Level 4.6 g/dL (3.5-5.0); Alkaline Phosphatase 114 U/L (39-117); Anion Gap 17 (12-20); Aspartate Amino Transferase 293 U/L (5-31); Bilirubin Direct < 0.2 mg/dL (0.0-0.5); Bilirubin Total 0.2 mg/dL (0.0-1.0); Blood Urea Nitrogen 22 mg/dL (9-16); Calcium 8.8 mg/dL (8.4-10.2); Carbon Dioxide 22 mmol/L (22-29); Chloride 102 mmol/L (96-108); Creatinine Clr Calc Pharmacy 54.4; Estimated Glomerular Filt Rate 36; Glucose Random 103 mg/dL (60-115); Potassium 6.3 mmol/L (3.3-5.1); Sodium 135 mmol/L (135-145); Total Protein 8.3 g/dL (6.5-8.0); Troponin-I High Sensitivity 87.2 ng/L (<3.5-17.0)
[2021-02-27 18:24] LABS: SLIDE REVIEW VERIFIED
[2021-02-27] MEDS: cefTRIAXone sodium 2 GM in 0.9 % Sodium Chloride 50 ML IV (18:51)
[2021-02-27 19:06] LABS: INTERNATIONAL NORM RATIO 1.1 (0.9-1.1); Prothrombin Time 12.1 SEC (9.9-13.0)
[2021-02-27 19:08] LABS: Partial Thromboplastin Time 30.5 SEC (24.1-38.0)
--- NOTE | 2021-02-27 19:15 | PC.NURSE ---
ASSUMED CARE OF PT. MD IN ROOM TO PLACE LAC IV WITH U/S. PT IS A VERY DIFFICULT STICK. BC X 2 OBTAINED. PT MEDICATED PER EMAR. NS X 2 UP AND RUNNING W/O.
[2021-02-27] MEDS: Calcium Gluconate/NaCl,Iso-Osm 2 GM/100 ML PLAST..BAG IV (19:18)
[2021-02-27] MEDS: 0.9 % Sodium Chloride 1,000 ML 999 ML IVCONT ×4 (19:18→23:45)
[2021-02-27] MEDS: Sodium Polystyrene Sulfon/Sorb 15 GM/60 ML ORAL.SUSP 30 GM PO (19:20)
[2021-02-27] MEDS: Insulin Regular, Human 100 UNIT/ML 3 ML VIAL IVPUSH (19:20)
--- NOTE | 2021-02-27 19:30 | PC.NURSE ---
MERGERS AND ACQUISITIONS CONSULTANT AT BEDSIDE FOR UPDATE TO PT AND FAMILY. MD AT BEDSIDE.
[2021-02-27 19:34] LABS: Ammonia 44 umol/L (13-55)
[2021-02-27] MEDS: Piperacillin Sodium/Tazobactam 3.375 GM in 0.9 % Sodium Chloride 50 ML IV (19:35)
[2021-02-27 19:36] LABS: HCG Quantitative < 2 mIU/mL
[2021-02-27 19:40] LABS: Lactic Acid 4.1 mmol/L (0.5-2.0)
[2021-02-27 19:45] LABS: Acetaminophen LAB < 1 mcg/mL (<30)
--- NOTE | 2021-02-27 20:02 | PC.NURSE ---
pt to ct in stretcher. pt in nad. Santizo being placed.
--- NOTE | 2021-02-27 20:15 | PC.NURSE ---
3rd L OF NS UP AND RUNNING W/O DIFFICULTY. SITE INTACT.
--- NOTE | 2021-02-27 20:27 | PC.NURSE ---
PT REFUSING TO DRINK KAYAXALE AT THIS TIME D/T NAUSEA. BARRAZA 16F INSERTED W/O DIFFICULTY AND URINE SENT TO LAB. PT REMAINS ON MONITOR IN NAD.
[2021-02-27 20:44] LABS: Appearance Urine HAZY; Color Urine YELLOW; Glucose Urine UA 100 MG/DL (NEG); Leukocyte Esterase Urine NEG (NEG); Nitrite Urine NEG (NEG); PH 5.5 (5.0-8.0); Specific Gravity - Urine >= 1.030 (1.005-1.025); UACC Culture Trigger NO; Urine Blood 3+ (NEG); Urine Ketones 5 MG/DL (NEG); Urine Protein 2+ MG/DL (NEG-TRACE)
[2021-02-27 20:49] LABS: Amphetamine Screen Urine Not Detected (Not Detect); Barbiturates, Urine Not Detected (Not Detect); Benzodiazepines Screen Urine Not Detected (Not Detect); Cannabinoid Screen Urine Not Detected (Not Detect); Cocaine Screen Urine POSITIVE (Not Detect); Fentanyl, urine POSITIVE (Not Detect); Opiate Screen Urine Not Detected (Not Detect); Phencyclidine Screen Urine Not Detected (Not Detect)
[2021-02-27 20:51] LABS: Amorphous Sediment Urine 1+ /LPF; Bacteria Urine 2+ /LPF; Squamous Epithelial Cell Urine 3+ /LPF; WBC Urine 0 /HPF (0-4)
[2021-02-27 21:25] LABS: Reflex Lactate? Lactic Acid Added
[2021-02-27] MEDS: Labetalol HCL 100 MG/20 ML VIAL 20 MG IVPUSH ×2 (22:04→23:45)
[2021-02-27 22:13] LABS: VBG Base Excess -8.7 mmol/L; VBG HCO3 17 mmol/L (22-26); VBG pCO2 37 mmHg; VBG pH 7.26 (7.32-7.43); VBG pO2 42 mmHg
[2021-02-27 22:14] LABS: Venous Blood Gas Refer to POC result
--- NOTE | 2021-02-27 22:19 | PC.NURSE ---
pt medicated for high b/p. pt remains on monitor. pt on bedpan for bm. Labs being drawn at this time. will continue to monitor pt.
[2021-02-27 22:21] LABS: Anion Gap 17 (12-20); Blood Urea Nitrogen 23 mg/dL (9-16); Calcium 8.5 mg/dL (8.4-10.2); Carbon Dioxide 20 mmol/L (22-29); Chloride 108 mmol/L (96-108); Creatinine Clr Calc Pharmacy 54.7; Estimated Glomerular Filt Rate 36; Glucose Random 89 mg/dL (60-115); Potassium 4.5 mmol/L (3.3-5.1); Sodium 140 mmol/L (135-145)
[2021-02-27 22:32] LABS: ~Lactic Acid-LAB USE ONLY 3.9 mmol/L (0.5-2.0)
[2021-02-27 22:33] LABS: Troponin-I High Sensitivity 241.9 ng/L (<3.5-17.0)
[2021-02-27] MEDS: Aspirin 81 MG TAB.CHEW 162 MG PO (23:06)
--- NOTE | 2021-02-27 23:20 | PC.NURSE ---
PT MEDICATED WITH ASA AND PT TO CT IN STRETCHER IN NAD. HOSPITALIST AT BEDSIDE FOR EVAL.
[2021-02-27 23:25] LABS: C Reactive Protein 5.41 mg/dL (< or = 0.50)
[2021-02-27 23:47] LABS: Thyroid Stimulating Hormone 0.68 uIU/mL (0.32-4.0)
[2021-02-28] VITALS (23 sets, daily range): BP systolic 138–193; BP diastolic 89–137; PULSE 81–92; RESP 13–20; TEMP 36.7–37.1; O2SAT 90–97; BMI 33.3
[2021-02-28 00:07] LABS: Reflex Lactate? 2 Y
--- NOTE | 2021-02-28 00:17 | PM.CCHP ---
History of Present Illness Date of Service: 02/27/21 Chief Complaint: Chief complaint: I just wanted detox but they say I am very sick HPI: ?This is a 32-year-old female who speaks both Yakut and Gabonese, has history of obesity, hypertension, and cocaine use who has been living at a local [facility] for approximately a year with her 4 children as she lost her job last year during the pandemic in.? She states that for a while she was not using any drugs and then she decided to take a couple lines of cocaine yesterday.? She realizes she was doing wrong spending her money is something that she should not and as her executive director for help such she could get some detox, she was then transported to the hospital for evaluation.? In the ER she did complain of having some headache. While in the emergency room, they noted that the patient had normal vital signs but reportedly was not acting herself, the workup reveal a white count of 22.6, venous blood gas revealed a pH of 7.15; HC03 of 22, then 17. BUN of 23, creatinine 1.61, lactic acid 4.1 and subsequently as low as 3.2 with troponin of 87 which then became as high as 241.9.? Patient did receive 2 L of IV fluid.? Urinalysis negative for UTI however her U tox revealed fentanyl and cocaine.? EKG showed no changes consistent with ischemia. Head CT showed no acute intracranial hemorrhage and probable subacute infarct within the left posterior parasagittal parietal lobe and all infarcts within the right occipital lobe, right cerebellum and right external capsule.? Chest CT showed no acute pathology.? Abdominal CT showed no acute findings.? Chest x-ray was also unremarkable.? Given the multiple findings, patient was admitted to ICU but the patient appears to be hemodynamically stable.? The only concerning issue was her abnormal blood gas and the patient's hypoxia at 85% on room air.? COVID negative. ?ROS:? Unobtainable due to mental status changes ?Past Medical History:As above ?Past Surgical History:??As above ?Family history: ?None Social History:? Currently living in a [facility] with her 4 children, smokes pack of cigarettes daily and has a total pack-year history of 24; uses cocaine.? Denies alcohol. CODE STATUS:? Full code ?Allergies: NKDA ?Home Medications: Losartan unknown dose as well as anxiety and depression medications PHYSICAL EXAM:VS: ?179/122, 100, 16, 96% on room air. General:? Alert oriented x3 no acute distress.? Speaking full sentences.? Speech is well articulated, thought process is coherent.? Following all commands.Skin:? Intact, no lesions, edema, erythema, clubbing or cyanosis.? No ulcers.HEENT:? Head is normocephalic, atraumatic, pupils equal round reactive to light accommodation bilaterally.? Extraocular movements appear intact.? Buccal mucosa is moist, Neck is supple without lymphadenopathy. Cardiac:? Clear S1-S2, no murmurs rubs or gallops. Pulmonary:? Clear to auscultation, no wheezes, rales or rhonchi. Abdomen:? Protuberant, positive bowel sounds in all 4 quadrants.? Soft, nontender, no rebound or guarding.? Musculoskeletal:? Moving all 4 extremities upon request a major joints, there is no crepitus or tenderness.? The strength is 5/5 bilaterally and throughout all 4 extremities.? There is no leg edema , no calf tenderness , no leg asymmetry.? Gait not assessed at this point. Neurologic:? As above, cranial nerves 2-12 are grossly intact.? No focal deficits noted. Motor strength as above.? Vascular:? 2+ pulses upper and lower extremities distally. ?SIGNIFICANT LABORATORY DATA:? As above ?REVIEW OF IMAGES: ?As above ?EKG REVIEW:? No sinus rhythm ventricular rate 96 beats per minute.? No ST elevations, no depressions, QTC 495. No comparison.?? ASSESSMENT AND PLAN: 1. Subacute cerebral infarcts 2. Metabolic acidosis likely in the setting of acute kidney injury (renal tubular acidosis) gastrointestinal losses, less likely dilution no acidosis from rapid administration of normal saline 3. Acute kidney injury versus chronic kidney disease as her baseline is unknown 4. Lactic acidosis 5. Transaminases of unknown etiology 6. Lactic acidosis could be secondary to tissue hypoxia and renal failure; NO EVIDENCE OF SEPSIS 7. Abnormal troponin without EKG changes, likely due to demand ischemia in the setting of cocaine abuse 8. Polysubstance abuse 9. Acute rhabdomyolysis 10. Essential hypertension 11. Obesity 12. Anxiety and depression. 13. Hypoxia, rule out ACS and ovarian likely, again rule out PE at this point the patient has renal failure and I cannot do a CT angiogram however this can be considered if renal function not better or simply do a VQ scan.? Will order CT to pneumonia or underlying mass. 14. TOBACCO ABUSE=== counseled on cessation, will use Nicoderm patches ? Will monitor the patient overnight mainly to ensure that she does not decompensate, if she remains stable she can be transferred to next level in the morning.? In the meantime heart monitor, I's and O's, gentle IV fluids, hold losartan which she reports taking home, have added he CRP, total CPK, will repeat labs in the morning including troponin, will order an echo, place her on aspirin, treat her blood pressure with whom in beta-jose given her tachycardia. Patient also states that she has been recently depressed and she feels like she needs to see somebody there for a psych evaluation may be granted.? Currently denies any suicidal homicidal ideations. I discussed the case with the special tester on-call Dr. Ayers and rigors of her symptoms and abnormal troponin, no anticoagulation was recommended at this point. GI PROPHYLAXIS:? IV ppi DVT PROPHYLAXIS:? Pneumatic stockings only Critical care time used for critical evaluation of this patient, diagnosis, treatment and coordination of care, review her records and documentation TOTAL CRITICAL CARE TIME 90 MIN . Patient's care was discussed in detail with Dr. Roche.? He is aware of all the above as well as the plan of care for this patient. [facility] Past Medical History Medical History HTN (hypertension) Social History Social History Household Members Other:: [facility] Housing Other:: [facility]: [place] Do you presently have visiting nurse or other home services: No Patient Tobacco Use Status: Current someday Tobacco user Tobacco use type: Cigarette Cigarettes Per Day: 20 Years Smoked: 24 Smoked in Last 30 Days: Yes e-Cigarette/Vaping Use: Currently Using Frequency of e-Cigarette/Vaping Use: every so often Patient Interested in Nicotine Replacement: Yes Patient Given Instructions on How to Stop Smoking: No Second Hand Smoke Exposure: Yes Use of substances other than those prescribed or required for medical reasons: Yes Substance Use Type: Crack/Cocaine Substance Use Frequency: Chronic Longstanding Last Used Substance: Just Prior to Admission Last Used Substance Other:: recently cut back, but left her with kids and started using more Currently Displaying Signs/Symptoms of Drug Intoxication Withdrawal: No Have you been hit, kicked, punched, or otherwise hurt by someone within the past year? If so, by whom?: No Do you feel safe in your current relationship?: Yes Is there a partner from a previous relationship who is making you feel unsafe now?: No Are you made to feel afraid or neglected: No Spiritual Healthcare Practices: na Moravian Healthcare Practices: na Cultural Healthcare Practices: na Advance Directives: No Advance Directives Information Provided: No Do you have thoughts of harming others: None Do you have a plan to hurt others: No Plan Recently lost weight without trying: No Patient : No : No Poor oral hygiene: No service: No Current occupational status: unemployed Meds Allergies Allergy/AdvReac Type Severity Reaction Status Date / Time No Known Allergies Allergy Verified 02/27/21 16:33 Active Medications: Current Medications Generic Name Dose Route Start Last Admin Trade Name Freq PRN Reason Stop Dose Admin Aspirin 81 mg 02/28/21 09:00 Aspirin 81 Mg Tab.Chew PO DAILY REY Sodium Chloride 1,000 mls @ 999 mls/hr 02/27/21 23:15 02/27/21 23:45 Ns IVCONT 02/28/21 01:15 999 mls/hr .Q1H1M REY Administration Sodium Bicarbonate 150 meq/ 1,000 mls @ 100 mls/hr 02/28/21 00:15 Dextrose IV .Q10H REY Pantoprazole Sodium 40 mg 02/28/21 09:00 Pantoprazole Sodium 40 Mg/10 Ml Vial IVPUSH DAILY [facility] Home Medications Medication Instructions Recorded Confirmed Last Taken Type aripiprazole 10 mg tablet 1 tab PO DAILY 02/28/21 02/28/21 Unknown History clonazepam 0.5 mg tablet 1 tab PO BID PRN 02/28/21 02/28/21 Unknown History losartan 100 mg tablet 1 tab PO DAILY 02/28/21 02/28/21 Unknown History paroxetine HCl 10 mg tablet 1 tab PO DAILY 02/28/21 02/28/21 Unknown History sumatriptan succinate 100 mg tablet 1 tab PO 02/28/21 Unknown History zolpidem 10 mg tablet 1 tab PO BEDTIME 02/28/21 02/28/21 Unknown History Physical Exam Vital Signs: Vital Signs: Last Vital Signs Temp 97.6 F 02/27/21 16:49 Pulse 96 02/27/21 23:45 Resp 16 02/27/21 21:19 BP 144/111 H 02/27/21 23:45 Pulse Ox 96 02/27/21 16:49 Body Mass Index 32.8 Results Labs CBC and Chem 7: 02/28/21 05:36 02/28/21 05:36 Labs: Laboratory Results - last 24 hr 02/27/21 02/27/21 02/27/21 16:53 17:43 17:43 MCV 87.3 MCH 25.8 L MCHC 29.6 L RDW 14.6 Plt Count 379 MPV 10.2 Immature Gran % (Auto) 2.2 H Neut % (Auto) 80.9 H Lymph % (Auto) 8.6 L [place] % (Auto) 8.1 Eos % (Auto) 0.0 Baso % (Auto) 0.2 Lymph # (Auto) 1.9 [place] # (Auto) 1.8 H Eos # (Auto) 0.0 Baso # (Auto) 0.0 Abs Immat Gran (auto) 0.50 H Absolute Neuts (auto) 18.3 H Absolute Nucleated RBC 0.030 H Nucleated RBC % (auto) 0.1 Smear Tech's Comments VERIFIED PT 12.1 INR 1.1 APTT 30.5 D-Dimer 401 VBG pH VBG pCO2 VBG pO2 VBG HCO3 VBG O2 Saturation VBG Base Excess Anion Gap Estim Creat Clear Calc Estimated GFR Random Glucose Lactic Acid Lactic Acid Fup @ 2Hr Calcium Total Bilirubin Direct Bilirubin AST ALT Alkaline Phosphatase Ammonia Total Creatine Kinase Troponin I High Sens C-Reactive Protein Total Protein Albumin TSH Beta HCG, Quant Urine Color Urine Appearance Urine pH Ur Specific Quinn Urine Protein Urine Glucose (UA) Urine Ketones Urine Blood Urine Nitrite Ur Leukocyte Esterase Urine RBC Urine WBC Ur Squamous Epith Cells Amorphous Sediment Urine Bacteria Urine Opiates Screen Urine Fentanyl Screen Acetaminophen Ur Barbiturates Screen Ur Phencyclidine Scrn Ur Amphetamines Screen U Benzodiazepines Scrn Urine Cocaine Screen U Marijuana (THC) Screen COVID-19 ([facility]) Negative COVID-19 Clin Com See Note 02/27/21 02/27/21 02/27/21 17:43 17:43 17:50 MCV MCH MCHC RDW Plt Count MPV Immature Gran % (Auto) Neut % (Auto) Lymph % (Auto) [place] % (Auto) Eos % (Auto) Baso % (Auto) Lymph # (Auto) [place] # (Auto) Eos # (Auto) Baso # (Auto) Abs Immat Gran (auto) Absolute Neuts (auto) Absolute Nucleated RBC Nucleated RBC % (auto) Smear Tech's Comments PT INR APTT D-Dimer VBG pH 7.15 L* VBG pCO2 63 VBG pO2 38 VBG HCO3 22 VBG O2 Saturation 49.0 VBG Base Excess -7.3 Anion Gap 17 Estim Creat Clear Calc 54.4 Estimated GFR 36 Random Glucose 103 Lactic Acid Lactic Acid Fup @ 2Hr Calcium 8.8 Total Bilirubin 0.2 Direct Bilirubin < 0.2 AST 293 H ALT 225 H Alkaline Phosphatase 114 Ammonia Total Creatine Kinase Troponin I High Sens 87.2 H* C-Reactive Protein Total Protein 8.3 H Albumin 4.6 TSH Beta HCG, Quant < 2 Urine Color Urine Appearance Urine pH Ur Specific Quinn Urine Protein Urine Glucose (UA) Urine Ketones Urine Blood Urine Nitrite Ur Leukocyte Esterase Urine RBC Urine WBC Ur Squamous Epith Cells Amorphous Sediment Urine Bacteria Urine Opiates Screen Urine Fentanyl Screen Acetaminophen < 1 Ur Barbiturates Screen Ur Phencyclidine Scrn Ur Amphetamines Screen U Benzodiazepines Scrn Urine Cocaine Screen U Marijuana (THC) Screen COVID-19 ([facility]) COVID-19 Clin Com 02/27/21 02/27/21 02/27/21 19:20 19:20 20:27 MCV MCH MCHC RDW Plt Count MPV Immature Gran % (Auto) Neut % (Auto) Lymph % (Auto) [place] % (Auto) Eos % (Auto) Baso % (Auto) Lymph # (Auto) [place] # (Auto) Eos # (Auto) Baso # (Auto) Abs Immat Gran (auto) Absolute Neuts (auto) Absolute Nucleated RBC Nucleated RBC % (auto) Smear Tech's Comments PT INR APTT D-Dimer VBG pH VBG pCO2 VBG pO2 VBG HCO3 VBG O2 Saturation VBG Base Excess Anion Gap Estim Creat Clear Calc Estimated GFR Random Glucose Lactic Acid 4.1 H* Lactic Acid Fup @ 2Hr Calcium Total Bilirubin Direct Bilirubin AST ALT Alkaline Phosphatase Ammonia 44 Total Creatine Kinase Troponin I High Sens C-Reactive Protein Total Protein Albumin TSH Beta HCG, Quant Urine Color Urine Appearance Urine pH Ur Specific Quinn Urine Protein Urine Glucose (UA) Urine Ketones Urine Blood Urine Nitrite Ur Leukocyte Esterase Urine RBC Urine WBC Ur Squamous Epith Cells Amorphous Sediment Urine Bacteria Urine Opiates Screen Not Detected Urine Fentanyl Screen POSITIVE H Acetaminophen Ur Barbiturates Screen Not Detected Ur Phencyclidine Scrn Not Detected Ur Amphetamines Screen Not Detected U Benzodiazepines Scrn Not Detected Urine Cocaine Screen POSITIVE H U Marijuana (THC) Screen Not Detected COVID-19 ([facility]) COVID-19 [employer] Com 02/27/21 02/27/21 02/27/21 20:27 22:00 22:00 MCV MCH MCHC RDW Plt Count MPV Immature Gran % (Auto) Neut % (Auto) Lymph % (Auto) [place] % (Auto) Eos % (Auto) Baso % (Auto) Lymph # (Auto) [place] # (Auto) Eos # (Auto) Baso # (Auto) Abs Immat Gran (auto) Absolute Neuts (auto) Absolute Nucleated RBC Nucleated RBC % (auto) Smear Tech's Comments PT INR APTT D-Dimer VBG pH VBG pCO2 VBG pO2 VBG HCO3 VBG O2 Saturation VBG Base Excess Anion Gap 17 Estim Creat Clear Calc 54.7 Estimated GFR 36 Random Glucose 89 Lactic Acid Lactic Acid Fup @ 2Hr 3.9 H* Calcium 8.5 Total Bilirubin Direct Bilirubin AST ALT Alkaline Phosphatase Ammonia Total Creatine Kinase 26365 H Troponin I High Sens C-Reactive Protein 5.41 H Total Protein Albumin TSH 0.68 Beta HCG, Quant Urine Color YELLOW Urine Appearance HAZY Urine pH 5.5 Ur Specific Quinn >= 1.030 H Urine Protein 2+ H Urine Glucose (UA) 100 H Urine Ketones 5 Urine Blood 3+ H Urine Nitrite NEG Ur Leukocyte Esterase NEG Urine RBC 1-4 Urine WBC 0 Ur Squamous Epith Cells 3+ Amorphous Sediment 1+ Urine Bacteria 2+ Urine Opiates Screen Urine Fentanyl Screen Acetaminophen Ur Barbiturates Screen Ur Phencyclidine Scrn Ur Amphetamines Screen U Benzodiazepines Scrn Urine Cocaine Screen U Marijuana (THC) Screen COVID-19 ([facility]) COVID-19 [employer] Com 02/27/21 02/27/21 22:00 22:05 MCV MCH MCHC RDW Plt Count MPV Immature Gran % (Auto) Neut % (Auto) Lymph % (Auto) [place] % (Auto) Eos % (Auto) Baso % (Auto) Lymph # (Auto) [place] # (Auto) Eos # (Auto) Baso # (Auto) Abs Immat Gran (auto) Absolute Neuts (auto) Absolute Nucleated RBC Nucleated RBC % (auto) Smear Tech's Comments PT INR APTT D-Dimer VBG pH 7.26 L VBG pCO2 37 VBG pO2 42 VBG HCO3 17 L VBG O2 Saturation 60.0 VBG Base Excess -8.7 Anion Gap Estim Creat Clear Calc Estimated GFR Random Glucose Lactic Acid Lactic Acid Fup @ 2Hr Calcium Total Bilirubin Direct Bilirubin AST ALT Alkaline Phosphatase Ammonia Total Creatine Kinase Troponin I High Sens 241.9 H* D C-Reactive Protein Total Protein Albumin TSH Beta HCG, Quant Urine Color Urine Appearance Urine pH Ur Specific Quinn Urine Protein Urine Glucose (UA) Urine Ketones Urine Blood Urine Nitrite Ur Leukocyte Esterase Urine RBC Urine WBC Ur Squamous Epith Cells Amorphous Sediment Urine Bacteria Urine Opiates Screen Urine Fentanyl Screen Acetaminophen Ur Barbiturates Screen Ur Phencyclidine Scrn Ur Amphetamines Screen U Benzodiazepines Scrn Urine Cocaine Screen U Marijuana (THC) Screen COVID-19 ([facility]) COVID-19 Clin Com Imaging Radiologist's Impressions: Impressions Chest X-Ray 02/27/21 16:45 IMPRESSION: Unremarkable examination. Abdomen/Pelvis CT 02/27/21 18:31 IMPRESSION: No acute findings in the abdomen or pelvis. No inflammatory changes. There is hepatomegaly. No hepatic lesion. IUD within the uterus. The IUD position is flipped, with the cross T portion at the lower uterine segment in the straight portion extending toward the fundus. Head CT 02/27/21 21:42 IMPRESSION: * No acute intracranial hemorrhage. * Probable subacute infarct within the left posterior parasagittal parietal lobe. 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 This critical result was discussed with Hal Mtz MD at 02/27/2021 10:35 PM and it was ascertained that the content and urgency of the report was understood at the time of direct communication. Chest CT 02/27/21 23:15 IMPRESSION: Normal CT of chest.
[2021-02-28] MEDS: Sodium Bicarbonate 8.4% 150 MEQ in Dextrose 5 % 850 ML 100 MEQ IV (00:46)
[2021-02-28] MEDS: 0.9 % Sodium Chloride 1,000 ML 999 ML IVCONT (00:50)
[2021-02-28 01:08] LABS: ~Lactic Acid-LAB USE ONLY 3.2 mmol/L (0.5-2.0)
[2021-02-28] MEDS: Nicotine 21 MG PATCH.TD24 TRANSDERMA (04:14)
[2021-02-28 05:40] LABS: VBG Base Excess -3.6 mmol/L; VBG HCO3 21 mmol/L (22-26); VBG pCO2 37 mmHg; VBG pH 7.36 (7.32-7.43); VBG pO2 44 mmHg
[2021-02-28 05:51] LABS: Hematocrit 38.1 % (37-47); Hemoglobin 11.9 g/dl (12.0-16.0); Mean Corpuscular HGB Conc 31.2 g/dl (31.0-35.0); Mean Corpuscular Volume 83.4 fL (80-98); Red Blood Count 4.57 X10*6/uL (4.20-5.50)
[2021-02-28 05:52] LABS: Basophils Percent Auto 0.1 % (0-2); Imm Gran Abs Auto 0.21 X10*3/uL (0.00-0.03); Lymphocytes Absolute Auto 3.6 X10*3/uL (1.2-4.9); Lymphocytes Percent Auto 16.3 % (20-40); MANUAL DIFF FLAG SCAN; Mean Platelet Volume 10.6 fL (9.4-12.3); Monocytes Percent Auto 8.9 % (2-11); NRBC Pct Auto 0.1 /100WBC (0.0-0.2); Neutrophils Absolute Auto 16.2 X10*3/uL (2.0-8.3); Neutrophils Percent Auto 73.7 % (45-73); Platelet Count 275 X10*3/uL (160-400); Red Cell Distribution Width 14.6 % (11.0-16.0); SCAN SMEAR FLAG 1
[2021-02-28 05:56] LABS: SLIDE REVIEW VERIFIED
--- NOTE | 2021-02-28 06:00 | ECG_ITS ---
Test Reason : hypoxia Blood Pressure : / mmHG Vent. Rate : 092 BPM Atrial Rate : 092 BPM P-R Int : 164 ms QRS Dur : 086 ms QT Int : 408 ms P-R-T Axes : 063 078 058 degrees QTc Int : 504 ms Normal sinus rhythm Possible Anterior infarct , age undetermined Prolonged QT Abnormal ECG When compared with ECG of 27-FEB-2021 17:25, No significant change was found Referred By: René Gaston Electronically Signed By:FRANCI JAMES
[2021-02-28 06:23] LABS: Venous Blood Gas Refer to POC result
[2021-02-28 06:30] LABS: Alanine Aminotransferase 208 U/L (0-31); Albumin Level 3.5 g/dL (3.5-5.0); Alkaline Phosphatase 105 U/L (39-117); Anion Gap 16 (12-20); Aspartate Amino Transferase 295 U/L (5-31); Bilirubin Total 0.3 mg/dL (0.0-1.0); Blood Urea Nitrogen 23 mg/dL (9-16); C Reactive Protein 5.77 mg/dL (< or = 0.50); Calcium 7.8 mg/dL (8.4-10.2); Carbon Dioxide 19 mmol/L (22-29); Chloride 109 mmol/L (96-108); Cholesterol 144 mg/dL; Creatinine Clr Calc Pharmacy 50.1; Estimated Glomerular Filt Rate 32; Glucose Random 110 mg/dL (60-115); HDL Cholesterol 23 mg/dL; LDL Cholesterol Calculated 75 mg/dl; Phosphorus 2.4 mg/dL (2.7-4.5); Potassium 4.3 mmol/L (3.3-5.1); Sodium 140 mmol/L (135-145); Total Protein 5.9 g/dL (6.5-8.0); Triglycerides 233 mg/dL
[2021-02-28] MEDS: Aspirin 81 MG TAB.CHEW PO (07:08)
[2021-02-28] MEDS: Metoprolol Tartrate 25 MG TABLET PO (07:08)
[2021-02-28] MEDS: Pantoprazole Sodium 40 MG/10 ML VIAL IVPUSH (07:08)
--- NOTE | 2021-02-28 07:30 | CA_ITS ---
Transthoracic Echocardiogram Patient (Last, First, Middle): Brad Barraza, Gender: Female Date of : 1985 Age: 35 Procedure Date: 02/28/2021 Procedure Type: Transthoracic Echocardiogram Location: ICU Height: 167.64 cm Weight: 92.08 kg BSA: 2.01 m2 Heart Rate: bpm BP: 147 / 119 mmHg Manager Civil: MORRO Referring MD: René SALGADO Symptoms: hypoxia; high trop, hx drug use ? endocarditis Study Quality: Fair Conclusions: - 1. Normal LV systolic function with grade 1 diastolic dysfunction 2. Normal cardiac valvular Doppler 3. Normal RV systolic pressure 4. No pericardial effusion Findings Left Ventricle Normal left ventricular size, thickness, and systolic function. The visually estimated ejection fraction is between 55-60%. There is no evidence of regional wall motion abnormalities. Spectral Doppler is indicative of an impaired relaxation filling pattern. E/E prime ratio is <8, consistent with normal filling pressures. Evidence suggests grade I (mild) diastolic dysfunction. Right Ventricle Normal right ventricular cavity size and systolic function. Atria The left atrium is normal in size. There is no evidence of interatrial shunt. The right atrium is normal in size. Aortic Valve Normal aortic valve structure and function. There is no aortic valve stenosis. There is no aortic valve regurgitation. Mitral Valve Normal mitral valve structure and function. There is trace mitral valve regurgitation. There is no mitral valve stenosis. Pulmonic Valve The pulmonic valve was not well visualized. Tricuspid Valve Likely normal tricuspid valve structure and function. There is trace tricuspid valve regurgitation. The right ventricular systolic pressure is normal. The right ventricular systolic pressure is 37 mmHg. Normal right atrial pressure. There is no evidence of pulmonary hypertension. Great Vessels All visible segments of the aorta are normal in size. The pulmonary artery was not well visualized. Venous The inferior vena cava is normal in size and collapses greater than 50% with inspiration. Pericardium/Pleural There is no evidence of pericardial effusion. Prior Study Comparison No prior study available for comparison. Measurements 2D Linear Measurements IVSd: 0.80 0.6-0.9/0.6-1.0 cm LVIDd: 5.08 3.9-5.3/4.2-5.9 cm LVIDd Index: 2.53 2.4-3.2/2.2-3.1 cm/m2 LVIDs: 3.69 2.0-3.6 cm LVPWd: 0.79 0.7-1.1 cm Ao Root: 3.40 2.1-3.5 cm LA Diam: 3.10 2.7-3.8/3.0-4.0 cm LAIDs Index: 1.54 1.5-2.3 cm/m2 LV Mass: 172.55 67-162/88-224 g LV Mass Index: 85.84 43-95/49-115 g/m2 LVOT Diam: 2.20 3.0+(-)1.3 cm 2D Systolic Function EF 4C: 59.80 >55% EF 2C: 51.90 >55% EF BiP: 55.30 >55% Mitral Valve MV Pk E: 0.76 MV PK A: 0.90 MV Decel Time: 153.00 E/A: 0.80 E'Lateral: 11.50 E'Medial: 9.03 E/E' Med: 8.40 E/E' Lat: 6.60 PHT: 45.00 MVA PHT: 4.89 Decel [place]: 4.94 Aortic Valve AoV Pk Mario: 1.18 AoV Mn Mario: 0.91 AoV VTI: 0.23 AoV Pk Grad: 6.00 Aov Mn Grad: 3.00 EDGARDO Cont.VTI: 2.75 LVOT LVOT Pk Mario: 0.90 LVOT Mn Mario: 0.65 LVOT VTI: 0.16 LVOT Pk Grad: 3.00 LVOT Mn Grad: 2.00 LVOT Diam: 2.20 LVOT Area: 3.80 Diastolic Function MV Pk E: 0.76 MV Pk A: 0.90 E/A: 0.80 E'Medial: 9.03 E/E' Med: 8.40 E' Laterial: 11.50 E/E' Lat: 6.60 Right Ventricle TAPSE (mm): 1.95 TVS' Mario: 8.49 Tricuspid Valve TR Pk Mario: 2.32 TR Pk Grad: 22.00 RA Press: 15.00 RVSP: 37.00 Great Vessels Aorta Ao Root-2D: 3.40 2.0-3.7 cm Ao Asc: 2.80 2.1-3.4 cm Updated in Other Vendor System with Status of Final Alexey Elizondo MD electronically signed on 02/28/2021 3:53:42 PM with status of Final
[2021-02-28 08:07] LABS: Troponin-I High Sensitivity 377.4 ng/L (<3.5-17.0)
[2021-02-28] MEDS: Labetalol HCL 200 MG TABLET PO (09:44)
[2021-02-28] MEDS: Lactated Ringers 1,000 ML 75 ML IVCONT (10:15)
--- NOTE | 2021-02-28 10:45 | MHC.CM.PN ---
pt is staying at [facility] c her children, she is planning to return there at dc but will need help c a ride . pt will be seen by care team for substance abuse prior to dc. dc plan is to return to retirement , no other svcs. cm to cont. to follow.
--- NOTE | 2021-02-28 14:15 | PM.CNCAR ---
History of Present Illness History of Present Illness Date of Service: 02/28/21 Requesting physician: René Gaston Consult reason: troponin elevation Chief complaint: Multiple cerebral infarcts, trop abd, hypoxia Narrative: I was requested to see Brad cardiology consultation today for elevated troponin. Patient study 5-year-old with prior history of hypertension, obesity, cocaine use in the past. She has been living in a local residential with 4 children lost her job lasted in the pandemic in the subsequently took 2 lines of cocaine use city. She realized that she was not doing well and then came to the hospital for detox. In the hospital she complains of some headaches. She has had headache for long time. Her she was noted to be having significant leukocytosis with acidosis as well as acute kidney injury including high lactic acid and elevated troponin initially of 87, subsequently of 241.9 and subsequently further reason to 300. She subsequently had a head CT which showed multiple areas of possible subacute infarct. She denies any recent symptoms of palpitations. Denies any symptoms of chest pain. In the ICD as noted to be significantly hypertensive with diastolic blood pressure up to 130 mm of mercury. She received IV labetalol and has notice blood pressure going down to systolic 147 over diastolic 110. She continues to have mild headache. No focal neurologic deficits. Again denies chest pain. EKG nonischemic. On the monitor noted to have some pauses, finding suggestive of sinoatrial tim Wenckebach. Denies palpitation. She says she has longstanding history of hypertension which has not been well controlled Review of Systems Review of Systems: Yes all other systems are reviewed and are negative Constitutional: Constitutional: Denies body ache(s), Denies chills, Reports fatigue, Denies fever(s) and Reports headache(s) Eyes: Eyes: Reports no additional eye complaints ENT: Reports system reviewed and no additional complaints, except as documented and Reports headache(s) Cardiovascular: Cardiovascular: Reports no additional cardiovascular complaints Respiratory: Respiratory: Reports no additional respiratory complaints Gastrointestinal: Gastrointestinal: Reports no additional gastrointestinal complaints Genitourinary: Genitourinary: Reports no additional female genitourinary complaints Musculoskeletal: Musculoskeletal: Reports no additional musculoskeletal complaints Integumentary/Breasts: Skin/Breast: Reports system reviewed and no additional complaints, except as docu Neurologic: Reports system reviewed and no additional complaints, except as documented and Reports headache(s) Endocrine: Endocrine: Reports no additional endocrine complaints and Reports fatigue PMFSH Past Medical History Medical History HTN (hypertension) Social History Social History Household Members Other:: residential Housing Other:: residential: [facility] Do you presently have visiting nurse or other home services: No Patient Tobacco Use Status: Current someday Tobacco user Tobacco use type: Cigarette Cigarettes Per Day: 20 Years Smoked: 24 Smoked in Last 30 Days: Yes e-Cigarette/Vaping Use: Currently Using Frequency of e-Cigarette/Vaping Use: every so often Patient Interested in Nicotine Replacement: Yes Patient Given Instructions on How to Stop Smoking: No Second Hand Smoke Exposure: Yes Use of substances other than those prescribed or required for medical reasons: Yes Substance Use Type: Crack/Cocaine Substance Use Frequency: Chronic Longstanding Last Used Substance: Just Prior to Admission Last Used Substance Other:: recently cut back, but left her with kids and started using more Currently Displaying Signs/Symptoms of Drug Intoxication Withdrawal: No Have you been hit, kicked, punched, or otherwise hurt by someone within the past year? If so, by whom?: No Do you feel safe in your current relationship?: Yes Is there a partner from a previous relationship who is making you feel unsafe now?: No Are you made to feel afraid or neglected: No Spiritual Healthcare Practices: na Alevism Healthcare Practices: na Cultural Healthcare Practices: na Advance Directives: No Advance Directives Information Provided: No Do you have thoughts of harming others: None Do you have a plan to hurt others: No Plan Recently lost weight without trying: No Patient : No : No Poor oral hygiene: No service: No Current occupational status: unemployed Meds Allergies Allergy/AdvReac Type Severity Reaction Status Date / Time No Known Allergies Allergy Verified 02/27/21 16:33 Active Medications: Current Medications Generic Name Dose Route Start Last Admin Trade Name Freq PRN Reason Stop Dose Admin Aripiprazole 10 mg 02/28/21 13:45 Aripiprazole 10 Mg Tablet PO DAILY REY Aspirin 81 mg 02/28/21 09:00 02/28/21 07:08 Aspirin 81 Mg Tab.Chew PO 81 mg DAILY REY Administration Clonazepam 0.5 mg 02/28/21 13:37 Clonazepam 0.5 Mg Tablet PO BID PRN Anxiety Lactated Ringer's 1,000 mls @ 75 mls/hr 02/28/21 10:00 02/28/21 10:15 Lr IVCONT 75 mls/hr .[id number] REY Administration Losartan Potassium 100 mg 02/28/21 13:45 Losartan Potassium 50 Mg Tablet PO DAILY [facility] Protocol Metoprolol Tartrate 25 mg 02/28/21 07:30 02/28/21 07:15 Metoprolol Tartrate 25 Mg Tablet PO Not Given BID [facility] Protocol Pantoprazole Sodium 40 mg 02/28/21 09:00 02/28/21 07:08 Pantoprazole Sodium 40 Mg/10 Ml Vial IVPUSH 40 mg DAILY REY Administration Paroxetine HCl 10 mg 02/28/21 13:45 Paroxetine Hcl 10 Mg Tablet PO DAILY [facility] Zolpidem Tartrate 5 mg 02/28/21 21:00 Zolpidem Tartrate 5 Mg Tablet PO BEDTIME [facility] Home Medications Medication Instructions Recorded Confirmed Last Taken Type aripiprazole 10 mg tablet 1 tab PO DAILY 02/28/21 02/28/21 Unknown History clonazepam 0.5 mg tablet 1 tab PO BID PRN 02/28/21 02/28/21 Unknown History losartan 100 mg tablet 1 tab PO DAILY 02/28/21 02/28/21 Unknown History paroxetine HCl 10 mg tablet 1 tab PO DAILY 02/28/21 02/28/21 Unknown History sumatriptan succinate 100 mg tablet 1 tab PO 02/28/21 Unknown History zolpidem 10 mg tablet 1 tab PO BEDTIME 02/28/21 02/28/21 Unknown History Physical Exam Vital Signs: Vital Signs: Last Vital Signs Temp 98.0 F 02/28/21 12:00 Pulse 85 02/28/21 14:00 Resp 14 02/28/21 14:00 BP 146/109 H 02/28/21 14:00 Pulse Ox 95 02/28/21 14:00 Oxygen Flow Rate 2 02/27/21 23:20 Body Mass Index 33.3 Const: General: cooperative, comfortable, no acute distress, alert and awake Nutritional Appearance: obese Orientation/consciousness: patient oriented x3 Limitations: no limitations HENMT: Head: Yes normocephalic and Yes atraumatic Neck: Neck: Yes trachea midline, Yes supple and Yes no JVD Resp: Effort & Inspection: normal respiratory effort Auscultation: wheezes scattered wheezes Cardio: Jugular venous distension: no JVD Palpation: normal PMI Rate: regular rate Rhythm: regular rhythm Heart sounds: S1 normal heart sound present, S2 normal heart sound present, no click, no gallops, no murmurs and no rubs GI: Auscultation: normal bowel sounds Neuro: General: patient oriented x3 and no focal motor deficits Extrem: General: Yes no clubbing, cyanosis or edema Results Labs and Meds Result diagrams: 02/28/21 05:36 02/28/21 05:36 Lab results: Laboratory Results - last 24 hr 02/27/21 02/27/21 02/27/21 16:53 17:43 17:43 WBC 22.6 H RBC 5.19 Hgb 13.4 Hct 45.3 MCV 87.3 MCH 25.8 L MCHC 29.6 L RDW 14.6 Plt Count 379 MPV 10.2 Immature Gran % (Auto) 2.2 H Neut % (Auto) 80.9 H Lymph % (Auto) 8.6 L [place] % (Auto) 8.1 Eos % (Auto) 0.0 Baso % (Auto) 0.2 Lymph # (Auto) 1.9 [place] # (Auto) 1.8 H Eos # (Auto) 0.0 Baso # (Auto) 0.0 Abs Immat Gran (auto) 0.50 H Absolute Neuts (auto) 18.3 H Absolute Nucleated RBC 0.030 H Nucleated RBC % (auto) 0.1 Smear Tech's Comments VERIFIED PT 12.1 INR 1.1 APTT 30.5 D-Dimer 401 VBG pH VBG pCO2 VBG pO2 VBG HCO3 VBG O2 Saturation VBG Base Excess Sodium Potassium Chloride Carbon Dioxide Anion Gap BUN Creatinine Estim Creat Clear Calc Estimated GFR Random Glucose Lactic Acid Lactic Acid Fup @ 2Hr Lactic Acid Fup @ 4Hr Calcium Phosphorus Total Bilirubin Direct Bilirubin AST ALT Alkaline Phosphatase Ammonia Total Creatine Kinase Troponin I High Sens C-Reactive Protein Total Protein Albumin Triglycerides Cholesterol LDL Cholesterol, Calc HDL Cholesterol TSH Beta HCG, Quant Urine Color Urine Appearance Urine pH Ur Specific [place] Urine Protein Urine Glucose (UA) Urine Ketones Urine Blood Urine Nitrite Ur Leukocyte Esterase Urine RBC Urine WBC Ur Squamous Epith Cells Amorphous Sediment Urine Bacteria Urine Opiates Screen Urine Fentanyl Screen Acetaminophen Ur Barbiturates Screen Ur Phencyclidine Scrn Ur Amphetamines Screen U Benzodiazepines Scrn Urine Cocaine Screen U Marijuana (THC) Screen COVID-19 ([facility]) Negative COVID-19 Clin Com See Note 02/27/21 02/27/21 02/27/21 17:43 17:43 17:50 WBC RBC Hgb Hct MCV MCH MCHC RDW Plt Count MPV Immature Gran % (Auto) Neut % (Auto) Lymph % (Auto) [place] % (Auto) Eos % (Auto) Baso % (Auto) Lymph # (Auto) [place] # (Auto) Eos # (Auto) Baso # (Auto) Abs Immat Gran (auto) Absolute Neuts (auto) Absolute Nucleated RBC Nucleated RBC % (auto) Smear Tech's Comments PT INR APTT D-Dimer VBG pH 7.15 L* VBG pCO2 63 VBG pO2 38 VBG HCO3 22 VBG O2 Saturation 49.0 VBG Base Excess -7.3 Sodium 135 Potassium 6.3 H* Chloride 102 Carbon Dioxide 22 Anion Gap 17 BUN 22 H Creatinine 1.62 H Estim Creat Clear Calc 54.4 Estimated GFR 36 Random Glucose 103 Lactic Acid Lactic Acid Fup @ 2Hr Lactic Acid Fup @ 4Hr Calcium 8.8 Phosphorus Total Bilirubin 0.2 Direct Bilirubin < 0.2 AST 293 H ALT 225 H Alkaline Phosphatase 114 Ammonia Total Creatine Kinase Troponin I High Sens 87.2 H* C-Reactive Protein Total Protein 8.3 H Albumin 4.6 Triglycerides Cholesterol LDL Cholesterol, Calc HDL Cholesterol TSH Beta HCG, Quant < 2 Urine Color Urine Appearance Urine pH Ur Specific [place] Urine Protein Urine Glucose (UA) Urine Ketones Urine Blood Urine Nitrite Ur Leukocyte Esterase Urine RBC Urine WBC Ur Squamous Epith Cells Amorphous Sediment Urine Bacteria Urine Opiates Screen Urine Fentanyl Screen Acetaminophen < 1 Ur Barbiturates Screen Ur Phencyclidine Scrn Ur Amphetamines Screen U Benzodiazepines Scrn Urine Cocaine Screen U Marijuana (THC) Screen COVID-19 ([facility]) COVID-19 Clin Com 02/27/21 02/27/21 02/27/21 19:20 19:20 20:27 WBC RBC Hgb Hct MCV MCH MCHC RDW Plt Count MPV Immature Gran % (Auto) Neut % (Auto) Lymph % (Auto) [place] % (Auto) Eos % (Auto) Baso % (Auto) Lymph # (Auto) [place] # (Auto) Eos # (Auto) Baso # (Auto) Abs Immat Gran (auto) Absolute Neuts (auto) Absolute Nucleated RBC Nucleated RBC % (auto) Smear Tech's Comments PT INR APTT D-Dimer VBG pH VBG pCO2 VBG pO2 VBG HCO3 VBG O2 Saturation VBG Base Excess Sodium Potassium Chloride Carbon Dioxide Anion Gap BUN Creatinine Estim Creat Clear Calc Estimated GFR Random Glucose Lactic Acid 4.1 H* Lactic Acid Fup @ 2Hr Lactic Acid Fup @ 4Hr Calcium Phosphorus Total Bilirubin Direct Bilirubin AST ALT Alkaline Phosphatase Ammonia 44 Total Creatine Kinase Troponin I High Sens C-Reactive Protein Total Protein Albumin Triglycerides Cholesterol LDL Cholesterol, Calc HDL Cholesterol TSH Beta HCG, Quant Urine Color Urine Appearance Urine pH Ur Specific [place] Urine Protein Urine Glucose (UA) Urine Ketones Urine Blood Urine Nitrite Ur Leukocyte Esterase Urine RBC Urine WBC Ur Squamous Epith Cells Amorphous Sediment Urine Bacteria Urine Opiates Screen Not Detected Urine Fentanyl Screen POSITIVE H Acetaminophen Ur Barbiturates Screen Not Detected Ur Phencyclidine Scrn Not Detected Ur Amphetamines Screen Not Detected U Benzodiazepines Scrn Not Detected Urine Cocaine Screen POSITIVE H U Marijuana (THC) Screen Not Detected COVID-19 ([facility]) COVID-19 Clin Com 02/27/21 02/27/21 02/27/21 20:27 22:00 22:00 WBC RBC Hgb Hct MCV MCH MCHC RDW Plt Count MPV Immature Gran % (Auto) Neut % (Auto) Lymph % (Auto) [place] % (Auto) Eos % (Auto) Baso % (Auto) Lymph # (Auto) [place] # (Auto) Eos # (Auto) Baso # (Auto) Abs Immat Gran (auto) Absolute Neuts (auto) Absolute Nucleated RBC Nucleated RBC % (auto) Smear Tech's Comments PT INR APTT D-Dimer VBG pH VBG pCO2 VBG pO2 VBG HCO3 VBG O2 Saturation VBG Base Excess Sodium 140 Potassium 4.5 D Chloride 108 Carbon Dioxide 20 L Anion Gap 17 BUN 23 H Creatinine 1.61 H Estim Creat Clear Calc 54.7 Estimated GFR 36 Random Glucose 89 Lactic Acid Lactic Acid Fup @ 2Hr 3.9 H* Lactic Acid Fup @ 4Hr Calcium 8.5 Phosphorus Total Bilirubin Direct Bilirubin AST ALT Alkaline Phosphatase Ammonia Total Creatine Kinase 91330 H Troponin I High Sens C-Reactive Protein 5.41 H Total Protein Albumin Triglycerides Cholesterol LDL Cholesterol, Calc HDL Cholesterol TSH 0.68 Beta HCG, Quant Urine Color YELLOW Urine Appearance HAZY Urine pH 5.5 Ur Specific [place] >= 1.030 H Urine Protein 2+ H Urine Glucose (UA) 100 H Urine Ketones 5 Urine Blood 3+ H Urine Nitrite NEG Ur Leukocyte Esterase NEG Urine RBC 1-4 Urine WBC 0 Ur Squamous Epith Cells 3+ Amorphous Sediment 1+ Urine Bacteria 2+ Urine Opiates Screen Urine Fentanyl Screen Acetaminophen Ur Barbiturates Screen Ur Phencyclidine Scrn Ur Amphetamines Screen U Benzodiazepines Scrn Urine Cocaine Screen U Marijuana (THC) Screen COVID-19 ([facility]) COVID-19 [employer] Com 02/27/21 02/27/21 02/28/21 22:00 22:05 00:40 WBC RBC Hgb Hct MCV MCH MCHC RDW Plt Count MPV Immature Gran % (Auto) Neut % (Auto) Lymph % (Auto) [place] % (Auto) Eos % (Auto) Baso % (Auto) Lymph # (Auto) [place] # (Auto) Eos # (Auto) Baso # (Auto) Abs Immat Gran (auto) Absolute Neuts (auto) Absolute Nucleated RBC Nucleated RBC % (auto) Smear Tech's Comments PT INR APTT D-Dimer VBG pH 7.26 L VBG pCO2 37 VBG pO2 42 VBG HCO3 17 L VBG O2 Saturation 60.0 VBG Base Excess -8.7 Sodium Potassium Chloride Carbon Dioxide Anion Gap BUN Creatinine Estim Creat Clear Calc Estimated GFR Random Glucose Lactic Acid Lactic Acid Fup @ 2Hr Lactic Acid Fup @ 4Hr 3.2 H* Calcium Phosphorus Total Bilirubin Direct Bilirubin AST ALT Alkaline Phosphatase Ammonia Total Creatine Kinase Troponin I High Sens 241.9 H* D C-Reactive Protein Total Protein Albumin Triglycerides Cholesterol LDL Cholesterol, Calc HDL Cholesterol TSH Beta HCG, Quant Urine Color Urine Appearance Urine pH Ur Specific [place] Urine Protein Urine Glucose (UA) Urine Ketones Urine Blood Urine Nitrite Ur Leukocyte Esterase Urine RBC Urine WBC Ur Squamous Epith Cells Amorphous Sediment Urine Bacteria Urine Opiates Screen Urine Fentanyl Screen Acetaminophen Ur Barbiturates Screen Ur Phencyclidine Scrn Ur Amphetamines Screen U Benzodiazepines Scrn Urine Cocaine Screen U Marijuana (THC) Screen COVID-19 ([facility]) COVID-19 [employer] Com 02/28/21 02/28/21 02/28/21 05:35 05:36 05:36 WBC 22.0 H RBC 4.57 Hgb 11.9 L Hct 38.1 MCV 83.4 MCH 26.0 L MCHC 31.2 RDW 14.6 Plt Count 275 D MPV 10.6 Immature Gran % (Auto) 1.0 H Neut % (Auto) 73.7 H Lymph % (Auto) 16.3 L [place] % (Auto) 8.9 Eos % (Auto) 0.0 Baso % (Auto) 0.1 Lymph # (Auto) 3.6 [place] # (Auto) 2.0 H Eos # (Auto) 0.0 Baso # (Auto) 0.0 Abs Immat Gran (auto) 0.21 H Absolute Neuts (auto) 16.2 H Absolute Nucleated RBC 0.030 H Nucleated RBC % (auto) 0.1 Smear Tech's Comments VERIFIED PT INR APTT D-Dimer VBG pH 7.36 VBG pCO2 37 VBG pO2 44 VBG HCO3 21 L VBG O2 Saturation 70.0 VBG Base Excess -3.6 Sodium 140 Potassium 4.3 Chloride 109 H Carbon Dioxide 19 L Anion Gap 16 BUN 23 H Creatinine 1.76 H Estim Creat Clear Calc 50.1 Estimated GFR 32 Random Glucose 110 Lactic Acid Lactic Acid Fup @ 2Hr Lactic Acid Fup @ 4Hr Calcium 7.8 L D Phosphorus 2.4 L Total Bilirubin 0.3 Direct Bilirubin AST 295 H ALT 208 H Alkaline Phosphatase 105 Ammonia Total Creatine Kinase 8844 H Troponin I High Sens C-Reactive Protein 5.77 H Total Protein 5.9 L D Albumin 3.5 D Triglycerides 233 Cholesterol 144 LDL Cholesterol, Calc 75 HDL Cholesterol 23 TSH Beta HCG, Quant Urine Color Urine Appearance Urine pH Ur Specific [place] Urine Protein Urine Glucose (UA) Urine Ketones Urine Blood Urine Nitrite Ur Leukocyte Esterase Urine RBC Urine WBC Ur Squamous Epith Cells Amorphous Sediment Urine Bacteria Urine Opiates Screen Urine Fentanyl Screen Acetaminophen Ur Barbiturates Screen Ur Phencyclidine Scrn Ur Amphetamines Screen U Benzodiazepines Scrn Urine Cocaine Screen U Marijuana (THC) Screen COVID-19 ([facility]) COVID-19 Clin Com 02/28/21 05:36 WBC RBC Hgb Hct MCV MCH MCHC RDW Plt Count MPV Immature Gran % (Auto) Neut % (Auto) Lymph % (Auto) [place] % (Auto) Eos % (Auto) Baso % (Auto) Lymph # (Auto) [place] # (Auto) Eos # (Auto) Baso # (Auto) Abs Immat Gran (auto) Absolute Neuts (auto) Absolute Nucleated RBC Nucleated RBC % (auto) Smear Tech's Comments PT INR APTT D-Dimer VBG pH VBG pCO2 VBG pO2 VBG HCO3 VBG O2 Saturation VBG Base Excess Sodium Potassium Chloride Carbon Dioxide Anion Gap BUN Creatinine Estim Creat Clear Calc Estimated GFR Random Glucose Lactic Acid Lactic Acid Fup @ 2Hr Lactic Acid Fup @ 4Hr Calcium Phosphorus Total Bilirubin Direct Bilirubin AST ALT Alkaline Phosphatase Ammonia Total Creatine Kinase Troponin I High Sens 377.4 H* D C-Reactive Protein Total Protein Albumin Triglycerides Cholesterol LDL Cholesterol, Calc HDL Cholesterol TSH Beta HCG, Quant Urine Color Urine Appearance Urine pH Ur Specific [place] Urine Protein Urine Glucose (UA) Urine Ketones Urine Blood Urine Nitrite Ur Leukocyte Esterase Urine RBC Urine WBC Ur Squamous Epith Cells Amorphous Sediment Urine Bacteria Urine Opiates Screen Urine Fentanyl Screen Acetaminophen Ur Barbiturates Screen Ur Phencyclidine Scrn Ur Amphetamines Screen U Benzodiazepines Scrn Urine Cocaine Screen U Marijuana (THC) Screen COVID-19 ([facility]) COVID-19 Clin Com EKG shows normal sinus rhythm with no acute ischemic changes Imaging Radiologist's impression: Impressions Chest X-Ray 02/27/21 16:45 IMPRESSION: Unremarkable examination. Abdomen/Pelvis CT 02/27/21 18:31 IMPRESSION: No acute findings in the abdomen or pelvis. No inflammatory changes. There is hepatomegaly. No hepatic lesion. IUD within the uterus. The IUD position is flipped, with the cross T portion at the lower uterine segment in the straight portion extending toward the fundus. Head CT 02/27/21 21:42 IMPRESSION: * No acute intracranial hemorrhage. * Probable subacute infarct within the left posterior parasagittal parietal lobe. 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 This critical result was discussed with Hal Mtz MD at 02/27/2021 10:35 PM and it was ascertained that the content and urgency of the report was understood at the time of direct communication. Chest CT 02/27/21 23:15 IMPRESSION: Normal CT of chest. Head CT 02/28/21 06:00 IMPRESSION: No acute intracranial hemorrhage. No change in the infarct in the left posterior parasagittal parietal lobe. Assessment and Plan (1) Myocardial injury: Status: Acute Patient with rising troponins suggestive of myocardial injury. Not quite meeting the criteria of non ST elevation myocardial infarction. Mother is clear rise in her troponin levels. Iain symptoms or ischemic EKG changes. This appears to be secondary to cocaine use probably due to coronary vasospasm as well as acute hypertension causing subendocardial ischemia in the setting of acute kidney injury. There is no indication for IV anticoagulation this does appear to be a primary acute coronary syndrome. Continue aggressive control of blood pressure, see below. 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 Avoid labetalol. Can use calcium channel jose such as nicardipine if required IV or Norvasc. Can also use nitro paste. Can also use hydralazine. In the long run she would benefit from renin angiotensin aldosterone antagonist. Does high likelihood of underlying obstructive sleep apnea should pursue outpatient sleep study. Echocardiogram was done and will be reviewed. Will sign of the case. Feel free to contact us. Procedures Date of Service Date of Service: 02/28/21
[2021-02-28] MEDS: Losartan Potassium 50 MG TABLET 100 MG PO (14:20)
[2021-02-28] MEDS: amLODIPine Besylate 10 MG TABLET PO (14:20)
[2021-02-28] MEDS: PARoxetine HCL 10 MG TABLET PO (15:25)
[2021-02-28] MEDS: ARIPiprazole 10 MG TABLET PO (15:25)
--- NOTE | 2021-02-28 15:29 | PM.CCPN ---
Subjective Subjective Date of Service: 02/28/21 Interval History: Mrs. Barraza was admitted to ICU early this morning because of multiple metabolic abnormalities. The patient is a 32-year-old female w PMHx of obesity, hypertension, and cocaine use.? She told me that she?s had HTN for a long time, and it?s never been well controlled.? She has been living at a local half-way for approximately a year with her 4 children since she lost her job last year during the pandemic.? She states that for a while she was not using any drugs and then she decided to take a couple lines of cocaine yesterday.? She realized she was doing wrong wasting her money on that and asked her director industrial relations for help with detox.? She was therefore brought to the [facility] ED for evaluation.? Only complaint in the ED was of headache.? She denied chest pain or SOB.? The patient has not had COVID vaccination. In the ED, vital signs were normal, but she was not acting herself.? General physical exam was unremarkable.? Lab workup was notable for a white count of 22.6, DDimer 401, BUN/creat 22/1.6, potassium 6.3, bicarb 22, moderate transaminase elevation with normal bilirubin, albumin 4.6, normal beta hCG, lactic acid 4.1, troponin of 87.? Venous blood gas showed 7.15/63/-7. ?Urinalysis showed 0 WBCs, 3+ blood, and 2+ urine protein.? Tox screen was positive for fentanyl and cocaine.? COVID was negative.? EKG showed no acute ischemic changes. Chest x-ray showed no acute disease.? Abdomen/pelvis CT were notable for hepatomegaly and an IUD in flipped position within the uterus. Head CT showed subacute infarct within the left posterior parasagittal parietal lobe, and old infarcts within the right occipital lobe, right cerebellum, and right external capsule. Chest CT showed no acute pathology.? Abdominal CT showed no acute findings.? Chest x-ray was also unremarkable.? She was given 2 L of IV fluids, ceftriaxone, Zosyn, Kayexalate, and glucose and insulin.? Repeat labs 4 hrs later showed unchanged renal indices, bicarb down to 20, potassium down to 4.5, lactate down to 3.9, troponin up to 241.? CPK was 11,000.? Noncontrast chest CT was normal. The patient remained hemodynamically stable with SpO2 mid to high 90s on room air.? She was admitted to the ICU because of the multiple metabolic findings, including the lactic acidosis, the acute renal failure with hyperkalemia, the troponin, and the cerebral infarcts.? She was put on aspirin, but in consultation with Cardiology, was not anticoagulated.? Antibiotics were not continued. She became hypertensive with diastolic blood pressures into the 120s.? She denied chest pain throughout this time.? On exam this morning, the patient looks entirely well and nontoxic, and has no complaints other than mild headache.? She has no neurologic deficits.? She was given metoprolol overnight.? Heart rate this morning is running 80s, sinus rhythm.? She?s had a few 1 second pauses on the heart rhythm monitor.? Blood pressure was up to 190s/130s range.? We gave her 200 mg oral labetalol.? Blood pressure came down to the 146/110 range.? Breathing easy with sat mid 90s. ?Afebrile.? No jugular venous distention with the head of the bed at 20-30 degrees.? Chest is clear.? She has no murmur or gallops.? Abdomen is benign.? She has no edema. LABORATORY DATA:? As below.? Notably, hemoglobin is down to 11.9 after volume resuscitation, white count is unchanged at 22, BUN and creatinine unchanged at 23/1.7, with bicarb 19, and potassium 4.3.? Phosphorus is only 2.4.? AST and ALT are pretty much unchanged, CPKs down to 8844, troponin is up to 377.? Peripheral venous blood gas this morning showed 7.36/37/-3.? Repeat EKG still shows no ischemic changes. ECHOCARDIOGRAM done at the bedside by the [facility], interpreted by me: Image quality:? Excellent.? Findings: 1. Wall thickness probably normal or top normal. 2. LV cavity size is normal, with normal LV systolic fxn with no RWMAs.? EF at least 50%. 3. RV size normal. 4. Atria probably normal 5. AoV morphologically normal with no . 6. MV morphologically normal. 7. TV morphologically normal with trace TR by color jazmyne, with CWD jet measuring 2.3m/sec, or gradient of 21mm. 8. IVC measured 2.3 cm, minimally contractile with inspiration.? Estimated CVP 15mm.? RVSP estimate 34mm. IMPRESSION: 1. Obesity 2. Polysubstance abuse, including cocaine and tobacco. 3. 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 Remarkably asysmptomatic. 4. Uncontrolled hypertension.? Likely 2? cocaine use on top of poorly controlled essential HTN (altho has not been worked up for other causes).? I?ve written for the losartan she takes at home, and added amlodipine.? Trying to avoid beta blockers given her short pauses. 5. Possible hypertensive encephalopathy.? If so, that would be hypertensive crisis.? Likely 2? cocaine use on top of poorly controlled HTN. 6. Elevated troponins, albeit with elevated renal indices.? Possible NSTEMI.? Demand ischemia 2? hypertensive crisis and/or cocaine use.? Discussed with Dr. Elizondo.? No anticoagulation recommended.? 7. Rhabdomyolysis.? 8. Acute kidney injury vs. chronic kidney disease.? Her baseline is unknown.? I?m guessing it?s the latter, associated with poorly controlled HTN, given the lack of improvement after volume resuscitation.? But the rhabdo may play a role.? Echo shows that she is volume replete.? I will discontinue IV fluids.? She?s written for a reg diet. 9. Acute hepatitis (transaminase elevation) of unknown etiology.? Added hepatitis screen to this morning?s labs. 10. Metabolic acidosis.? Most likely 2? combination of kidney disease, lactic acidosis, and NS infusion 11. Lactic acidosis.? Type B (i.e. not 2? shock or sepsis). 12. Leukocytosis.? No source identified.? U/A is negative.? Blood cultures pending.? Chest CT is normal.? She looks entierely well and nontoxic.? Quick SOFA score 0. ?No indication for antibiotics. Stable for transfer [place] [facility] Will sign out to hospitalists. Time:? 90 min ([facility] visits, echo, d/w Dr. Elizondo, [facility] medical problems, sign out):? [phone]. Critical Care Time (minutes): 0 Physical Exam Vital Signs: Vital Signs: Last Vital Signs Temp 98.0 F 02/28/21 12:00 Pulse 88 02/28/21 15:00 Resp 16 02/28/21 15:00 BP 140/94 H 02/28/21 15:00 Pulse Ox 94 02/28/21 15:00 Oxygen Flow Rate 2 02/27/21 23:20 Body Mass Index 33.3 Objective Data Labs CBC & Chem 7: 02/28/21 05:36 02/28/21 05:36 Labs: Laboratory Results - last 24 hr 02/27/21 02/27/21 02/27/21 16:53 17:43 17:43 WBC 22.6 H RBC 5.19 Hgb 13.4 Hct 45.3 MCV 87.3 MCH 25.8 L MCHC 29.6 L RDW 14.6 Plt Count 379 MPV 10.2 Immature Gran % (Auto) 2.2 H Neut % (Auto) 80.9 H Lymph % (Auto) 8.6 L Parke % (Auto) 8.1 Eos % (Auto) 0.0 Baso % (Auto) 0.2 Lymph # (Auto) 1.9 Parke # (Auto) 1.8 H Eos # (Auto) 0.0 Baso # (Auto) 0.0 Abs Immat Gran (auto) 0.50 H Absolute Neuts (auto) 18.3 H Absolute Nucleated RBC 0.030 H Nucleated RBC % (auto) 0.1 Smear Tech's Comments VERIFIED PT 12.1 INR 1.1 APTT 30.5 D-Dimer 401 VBG pH VBG pCO2 VBG pO2 VBG HCO3 VBG O2 Saturation VBG Base Excess Sodium Potassium Chloride Carbon Dioxide Anion Gap BUN Creatinine Estim Creat Clear Calc Estimated GFR Random Glucose Lactic Acid Lactic Acid Fup @ 2Hr Lactic Acid Fup @ 4Hr Calcium Phosphorus Total Bilirubin Direct Bilirubin AST ALT Alkaline Phosphatase Ammonia Total Creatine Kinase Troponin I High Sens C-Reactive Protein Total Protein Albumin Triglycerides Cholesterol LDL Cholesterol, Calc HDL Cholesterol TSH Beta HCG, Quant Urine Color Urine Appearance Urine pH Ur Specific [place] Urine Protein Urine Glucose (UA) Urine Ketones Urine Blood Urine Nitrite Ur Leukocyte Esterase Urine RBC Urine WBC Ur Squamous Epith Cells Amorphous Sediment Urine Bacteria Urine Opiates Screen Urine Fentanyl Screen Acetaminophen Ur Barbiturates Screen Ur Phencyclidine Scrn Ur Amphetamines Screen U Benzodiazepines Scrn Urine Cocaine Screen U Marijuana (THC) Screen COVID-19 ([facility]) Negative COVID-19 Clin Com See Note 02/27/21 02/27/21 02/27/21 17:43 17:43 17:50 WBC RBC Hgb Hct MCV MCH MCHC RDW Plt Count MPV Immature Gran % (Auto) Neut % (Auto) Lymph % (Auto) Parke % (Auto) Eos % (Auto) Baso % (Auto) Lymph # (Auto) [place]ke # (Auto) Eos # (Auto) Baso # (Auto) Abs Immat Gran (auto) Absolute Neuts (auto) Absolute Nucleated RBC Nucleated RBC % (auto) Smear Tech's Comments PT INR APTT D-Dimer VBG pH 7.15 L* VBG pCO2 63 VBG pO2 38 VBG HCO3 22 VBG O2 Saturation 49.0 VBG Base Excess -7.3 Sodium 135 Potassium 6.3 H* Chloride 102 Carbon Dioxide 22 Anion Gap 17 BUN 22 H Creatinine 1.62 H Estim Creat Clear Calc 54.4 Estimated GFR 36 Random Glucose 103 Lactic Acid Lactic Acid Fup @ 2Hr Lactic Acid Fup @ 4Hr Calcium 8.8 Phosphorus Total Bilirubin 0.2 Direct Bilirubin < 0.2 AST 293 H ALT 225 H Alkaline Phosphatase 114 Ammonia Total Creatine Kinase Troponin I High Sens 87.2 H* C-Reactive Protein Total Protein 8.3 H Albumin 4.6 Triglycerides Cholesterol LDL Cholesterol, Calc HDL Cholesterol TSH Beta HCG, Quant < 2 Urine Color Urine Appearance Urine pH Ur Specific [place] Urine Protein Urine Glucose (UA) Urine Ketones Urine Blood Urine Nitrite Ur Leukocyte Esterase Urine RBC Urine WBC Ur Squamous Epith Cells Amorphous Sediment Urine Bacteria Urine Opiates Screen Urine Fentanyl Screen Acetaminophen < 1 Ur Barbiturates Screen Ur Phencyclidine Scrn Ur Amphetamines Screen U Benzodiazepines Scrn Urine Cocaine Screen U Marijuana (THC) Screen COVID-19 ([facility]) COVID-19 Clin Com 02/27/21 02/27/21 02/27/21 19:20 19:20 20:27 WBC RBC Hgb Hct MCV MCH MCHC RDW Plt Count MPV Immature Gran % (Auto) Neut % (Auto) Lymph % (Auto) [place]ke % (Auto) Eos % (Auto) Baso % (Auto) Lymph # (Auto) [place]ke # (Auto) Eos # (Auto) Baso # (Auto) Abs Immat Gran (auto) Absolute Neuts (auto) Absolute Nucleated RBC Nucleated RBC % (auto) Smear Tech's Comments PT INR APTT D-Dimer VBG pH VBG pCO2 VBG pO2 VBG HCO3 VBG O2 Saturation VBG Base Excess Sodium Potassium Chloride Carbon Dioxide Anion Gap BUN Creatinine Estim Creat Clear Calc Estimated GFR Random Glucose Lactic Acid 4.1 H* Lactic Acid Fup @ 2Hr Lactic Acid Fup @ 4Hr Calcium Phosphorus Total Bilirubin Direct Bilirubin AST ALT Alkaline Phosphatase Ammonia 44 Total Creatine Kinase Troponin I High Sens C-Reactive Protein Total Protein Albumin Triglycerides Cholesterol LDL Cholesterol, Calc HDL Cholesterol TSH Beta HCG, Quant Urine Color Urine Appearance Urine pH Ur Specific [place] Urine Protein Urine Glucose (UA) Urine Ketones Urine Blood Urine Nitrite Ur Leukocyte Esterase Urine RBC Urine WBC Ur Squamous Epith Cells Amorphous Sediment Urine Bacteria Urine Opiates Screen Not Detected Urine Fentanyl Screen POSITIVE H Acetaminophen Ur Barbiturates Screen Not Detected Ur Phencyclidine Scrn Not Detected Ur Amphetamines Screen Not Detected U Benzodiazepines Scrn Not Detected Urine Cocaine Screen POSITIVE H U Marijuana (THC) Screen Not Detected COVID-19 ([facility]) COVID-19 Clin Com 02/27/21 02/27/21 02/27/21 20:27 22:00 22:00 WBC RBC Hgb Hct MCV MCH MCHC RDW Plt Count MPV Immature Gran % (Auto) Neut % (Auto) Lymph % (Auto) [place]ke % (Auto) Eos % (Auto) Baso % (Auto) Lymph # (Auto) Parke # (Auto) Eos # (Auto) Baso # (Auto) Abs Immat Gran (auto) Absolute Neuts (auto) Absolute Nucleated RBC Nucleated RBC % (auto) Smear Tech's Comments PT INR APTT D-Dimer VBG pH VBG pCO2 VBG pO2 VBG HCO3 VBG O2 Saturation VBG Base Excess Sodium 140 Potassium 4.5 D Chloride 108 Carbon Dioxide 20 L Anion Gap 17 BUN 23 H Creatinine 1.61 H Estim Creat Clear Calc 54.7 Estimated GFR 36 Random Glucose 89 Lactic Acid Lactic Acid Fup @ 2Hr 3.9 H* Lactic Acid Fup @ 4Hr Calcium 8.5 Phosphorus Total Bilirubin Direct Bilirubin AST ALT Alkaline Phosphatase Ammonia Total Creatine Kinase 23675 H Troponin I High Sens C-Reactive Protein 5.41 H Total Protein Albumin Triglycerides Cholesterol LDL Cholesterol, Calc HDL Cholesterol TSH 0.68 Beta HCG, Quant Urine Color YELLOW Urine Appearance HAZY Urine pH 5.5 Ur Specific [place] >= 1.030 H Urine Protein 2+ H Urine Glucose (UA) 100 H Urine Ketones 5 Urine Blood 3+ H Urine Nitrite NEG Ur Leukocyte Esterase NEG Urine RBC 1-4 Urine WBC 0 Ur Squamous Epith Cells 3+ Amorphous Sediment 1+ Urine Bacteria 2+ Urine Opiates Screen Urine Fentanyl Screen Acetaminophen Ur Barbiturates Screen Ur Phencyclidine Scrn Ur Amphetamines Screen U Benzodiazepines Scrn Urine Cocaine Screen U Marijuana (THC) Screen COVID-19 ([facility]) COVID-19 [employer] 02/27/21 02/27/21 02/28/21 22:00 22:05 00:40 WBC RBC Hgb Hct MCV MCH MCHC RDW Plt Count MPV Immature Gran % (Auto) Neut % (Auto) Lymph % (Auto) Parke % (Auto) Eos % (Auto) Baso % (Auto) Lymph # (Auto) [place]ke # (Auto) Eos # (Auto) Baso # (Auto) Abs Immat Gran (auto) Absolute Neuts (auto) Absolute Nucleated RBC Nucleated RBC % (auto) Smear Tech's Comments PT INR APTT D-Dimer VBG pH 7.26 L VBG pCO2 37 VBG pO2 42 VBG HCO3 17 L VBG O2 Saturation 60.0 VBG Base Excess -8.7 Sodium Potassium Chloride Carbon Dioxide Anion Gap BUN Creatinine Estim Creat Clear Calc Estimated GFR Random Glucose Lactic Acid Lactic Acid Fup @ 2Hr Lactic Acid Fup @ 4Hr 3.2 H* Calcium Phosphorus Total Bilirubin Direct Bilirubin AST ALT Alkaline Phosphatase Ammonia Total Creatine Kinase Troponin I High Sens 241.9 H* D C-Reactive Protein Total Protein Albumin Triglycerides Cholesterol LDL Cholesterol, Calc HDL Cholesterol TSH Beta HCG, Quant Urine Color Urine Appearance Urine pH Ur Specific [place] Urine Protein Urine Glucose (UA) Urine Ketones Urine Blood Urine Nitrite Ur Leukocyte Esterase Urine RBC Urine WBC Ur Squamous Epith Cells Amorphous Sediment Urine Bacteria Urine Opiates Screen Urine Fentanyl Screen Acetaminophen Ur Barbiturates Screen Ur Phencyclidine Scrn Ur Amphetamines Screen U Benzodiazepines Scrn Urine Cocaine Screen U Marijuana (THC) Screen COVID-19 ([facility]) COVID-19 [employer] 02/28/21 02/28/21 02/28/21 05:35 05:36 05:36 WBC 22.0 H RBC 4.57 Hgb 11.9 L Hct 38.1 MCV 83.4 MCH 26.0 L MCHC 31.2 RDW 14.6 Plt Count 275 D MPV 10.6 Immature Gran % (Auto) 1.0 H Neut % (Auto) 73.7 H Lymph % (Auto) 16.3 L Parke % (Auto) 8.9 Eos % (Auto) 0.0 Baso % (Auto) 0.1 Lymph # (Auto) 3.6 Parke # (Auto) 2.0 H Eos # (Auto) 0.0 Baso # (Auto) 0.0 Abs Immat Gran (auto) 0.21 H Absolute Neuts (auto) 16.2 H Absolute Nucleated RBC 0.030 H Nucleated RBC % (auto) 0.1 Smear Tech's Comments VERIFIED PT INR APTT D-Dimer VBG pH 7.36 VBG pCO2 37 VBG pO2 44 VBG HCO3 21 L VBG O2 Saturation 70.0 VBG Base Excess -3.6 Sodium 140 Potassium 4.3 Chloride 109 H Carbon Dioxide 19 L Anion Gap 16 BUN 23 H Creatinine 1.76 H Estim Creat Clear Calc 50.1 Estimated GFR 32 Random Glucose 110 Lactic Acid Lactic Acid Fup @ 2Hr Lactic Acid Fup @ 4Hr Calcium 7.8 L D Phosphorus 2.4 L Total Bilirubin 0.3 Direct Bilirubin AST 295 H ALT 208 H Alkaline Phosphatase 105 Ammonia Total Creatine Kinase 8844 H Troponin I High Sens C-Reactive Protein 5.77 H Total Protein 5.9 L D Albumin 3.5 D Triglycerides 233 Cholesterol 144 LDL Cholesterol, Calc 75 HDL Cholesterol 23 TSH Beta HCG, Quant Urine Color Urine Appearance Urine pH Ur Specific [place] Urine Protein Urine Glucose (UA) Urine Ketones Urine Blood Urine Nitrite Ur Leukocyte Esterase Urine RBC Urine WBC Ur Squamous Epith Cells Amorphous Sediment Urine Bacteria Urine Opiates Screen Urine Fentanyl Screen Acetaminophen Ur Barbiturates Screen Ur Phencyclidine Scrn Ur Amphetamines Screen U Benzodiazepines Scrn Urine Cocaine Screen U Marijuana (THC) Screen COVID-19 ([facility]) COVID-19 Clin Com 02/28/21 05:36 WBC RBC Hgb Hct MCV MCH MCHC RDW Plt Count MPV Immature Gran % (Auto) Neut % (Auto) Lymph % (Auto) [place]ke % (Auto) Eos % (Auto) Baso % (Auto) Lymph # (Auto) [place]ke # (Auto) Eos # (Auto) Baso # (Auto) Abs Immat Gran (auto) Absolute Neuts (auto) Absolute Nucleated RBC Nucleated RBC % (auto) Smear Tech's Comments PT INR APTT D-Dimer VBG pH VBG pCO2 VBG pO2 VBG HCO3 VBG O2 Saturation VBG Base Excess Sodium Potassium Chloride Carbon Dioxide Anion Gap BUN Creatinine Estim Creat Clear Calc Estimated GFR Random Glucose Lactic Acid Lactic Acid Fup @ 2Hr Lactic Acid Fup @ 4Hr Calcium Phosphorus Total Bilirubin Direct Bilirubin AST ALT Alkaline Phosphatase Ammonia Total Creatine Kinase Troponin I High Sens 377.4 H* D C-Reactive Protein Total Protein Albumin Triglycerides Cholesterol LDL Cholesterol, Calc HDL Cholesterol TSH Beta HCG, Quant Urine Color Urine Appearance Urine pH Ur Specific [place] Urine Protein Urine Glucose (UA) Urine Ketones Urine Blood Urine Nitrite Ur Leukocyte Esterase Urine RBC Urine WBC Ur Squamous Epith Cells Amorphous Sediment Urine Bacteria Urine Opiates Screen Urine Fentanyl Screen Acetaminophen Ur Barbiturates Screen Ur Phencyclidine Scrn Ur Amphetamines Screen U Benzodiazepines Scrn Urine Cocaine Screen U Marijuana (THC) Screen COVID-19 ([facility]) COVID-19 Clin Com Quality Stroke Does the patient have a stroke diagnosis?: No VTE Prior VTE?: No VTE Risk Level:: Medical - moderate - high VTE Device Contraindication: N/A - Device Ordered VTE Drug Contraindication: N/A - Med Ordered
[2021-02-28 16:03] LABS: Lactic Acid 3.1 mmol/L (0.5-2.0)
[2021-02-28 16:05] LABS: D Dimer 3210 NG/ML
[2021-02-28 16:19] LABS: B Type Natriuretic Peptide 242 pg/mL (<100); Troponin-I High Sensitivity 231.5 ng/L (<3.5-17.0)
[2021-02-28 17:46] LABS: Reflex Lactate? Lactic Acid Added
[2021-02-28 19:08] LABS: ~Lactic Acid-LAB USE ONLY 2.6 mmol/L (0.5-2.0)
[2021-02-28] MEDS: Enoxaparin Sodium 100 MG/ML SYRINGE 95 MG SUBCUT (19:22)
--- NOTE | 2021-02-28 20:33 | PM.CCN ---
Critical Care Event Note Summary Date of Service: 02/28/21 Code activated: No Narrative: Duplex scan of the LE's is negative, but the perfusion scan suggests high probability of PE. The pt is hemodynamically stable, breathing easy, and the echo done today showed normal size LV and RV, normal fxn RV, top-normal or only minimally elevated RVSP. So only anticoagulation is indicated, there is no indication for tPA. We've started her on bid Lovenox. She should have a f/u echo in a month or two, sooner if she develops respiratory symptoms such as GRIFFIN. She also needs a w/u to determine why she developed the PE. Critical Care Time (minutes): 0
[2021-02-28 20:47] LABS: Reflex Lactate? 2 Y
[2021-02-28] MEDS: Zolpidem Tartrate 5 MG TABLET PO (21:20)
[2021-03-01] VITALS (8 sets, daily range): BP systolic 140–172; BP diastolic 82–114; PULSE 75–95; RESP 18–20; TEMP 36.4–37.3; O2SAT 93–100; BMI 33.0
[2021-03-01 06:57] LABS: Hemoglobin 11.3 g/dl (12.0-16.0); Mean Corpuscular HGB Conc 32.3 g/dl (31.0-35.0); Mean Corpuscular Hemoglobin 26.3 pg (27.0-33.0); Mean Corpuscular Volume 81.4 fL (80-98); Mean Platelet Volume 10.9 fL (9.4-12.3); NRBC Pct Auto 0.1 /100WBC (0.0-0.2); Platelet Count 296 X10*3/uL (160-400); Red Cell Distribution Width 14.8 % (11.0-16.0); White Blood Count 20.5 X10*3/uL (4.8-10.8)
[2021-03-01 07:22] LABS: Alanine Aminotransferase 154 U/L (0-31); Albumin Level 3.5 g/dL (3.5-5.0); Alkaline Phosphatase 102 U/L (39-117); Anion Gap 12 (12-20); Aspartate Amino Transferase 142 U/L (5-31); Bilirubin Total 0.2 mg/dL (0.0-1.0); Blood Urea Nitrogen 17 mg/dL (9-16); Calcium 8.5 mg/dL (8.4-10.2); Carbon Dioxide 27 mmol/L (22-29); Chloride 108 mmol/L (96-108); Creatinine Clr Calc Pharmacy 69.1; Estimated Glomerular Filt Rate 47; Glucose Random 111 mg/dL (60-115); Magnesium 1.9 mg/dL (1.6-2.6); Phosphorus 1.5 mg/dL (2.7-4.5); Potassium 3.5 mmol/L (3.3-5.1); Sodium 143 mmol/L (135-145); Total Protein 6.1 g/dL (6.5-8.0)
[2021-03-01] MEDS: Losartan Potassium 50 MG TABLET 100 MG PO (08:11)
[2021-03-01] MEDS: Pantoprazole Sodium 40 MG/10 ML VIAL IVPUSH (08:11)
[2021-03-01] MEDS: PARoxetine HCL 10 MG TABLET PO (08:12)
[2021-03-01] MEDS: Aspirin 81 MG TAB.CHEW PO (08:12)
[2021-03-01] MEDS: ARIPiprazole 10 MG TABLET PO (08:12)
[2021-03-01] MEDS: Enoxaparin Sodium 100 MG/ML SYRINGE 95 MG SUBCUT ×2 (08:13→19:28)
--- NOTE | 2021-03-01 18:42 | HO.PM.IMPN ---
Subjective Subjective Date of Service: 03/02/21 Interval History: seen in f/u for sergio, accelerated HTN, myocardial injury, PE, hyperkalemia and admitted through ICU. BP is better, has no chest pain sob Review of Systems Gen: no fever Resp: no sob, no cough CV: no chest, no GRIFFIN, no leg edema GI: No n/v, no abd pain Neuro: No confusion Physical Exam Vital Signs: Vital Signs: Last Vital Signs Temp 99.1 F 03/01/21 14:57 Pulse 75 03/01/21 14:57 Resp 20 03/01/21 14:57 BP 155/96 H 03/01/21 14:57 Pulse Ox 98 03/01/21 14:57 Oxygen Flow Rate 2 02/27/21 23:20 Body Mass Index 33.0 Constitutional Awake and Alert, No apparent distress Neck Supple, No lymphadenopathy Cardiovascular RRR, No M/R/G, S1 S2, No S3 S4, No pedal edema Respiratory Lungs clear, No respiratory distress Gastrointestinal Non tender, Non-distended Skin No rash Neurological Alert & oriented x3 Psychological Appropriate affect Objective Data Active Medications Aripiprazole (Aripiprazole 10 Mg Tablet) 10 mg PO DAILY [facility] Last Admin: 03/01/21 08:12 Dose: 10 mg Documented by: JW-UMESH Aspirin (Aspirin 81 Mg Tab.Chew) 81 mg PO DAILY [facility] Last Admin: 03/01/21 08:12 Dose: 81 mg Documented by: JUSTINE Clonazepam (Clonazepam 0.5 Mg Tablet) 0.5 mg PO BID PRN PRN Reason: Anxiety Enoxaparin Sodium (Enoxaparin Sodium 100 Mg/Ml Syringe) 95 mg 1 mg/kg (95 mg) SUBCUT Q12H [facility] Last Admin: 03/01/21 08:13 Dose: 95 mg Documented by: JUSTINE Losartan Potassium (Losartan Potassium 50 Mg Tablet) 100 mg PO DAILY [facility]; Protocol Last Admin: 03/01/21 08:11 Dose: 100 mg Documented by: JUSTINE Pantoprazole Sodium (Pantoprazole Sodium 40 Mg/10 Ml Vial) 40 mg IVPUSH DAILY [facility] Last Admin: 03/01/21 08:11 Dose: 40 mg Documented by: JUSTINE Paroxetine HCl (Paroxetine Hcl 10 Mg Tablet) 10 mg PO DAILY [facility] Last Admin: 03/01/21 08:12 Dose: 10 mg Documented by: JUSTINE Zolpidem Tartrate (Zolpidem Tartrate 5 Mg Tablet) 5 mg PO BEDTIME [facility] Last Admin: 02/28/21 21:20 Dose: 5 mg Documented by: BRENTON Labs CBC & Chem 7: 03/02/21 06:03 03/02/21 06:03 Labs: Laboratory Results - last 24 hr 02/28/21 02/28/21 03/01/21 18:44 21:06 06:04 MCV 81.4 MCH 26.3 L MCHC 32.3 RDW 14.8 Plt Count 296 MPV 10.9 Absolute Nucleated RBC 0.020 H Nucleated RBC % (auto) 0.1 Anion Gap Estim Creat Clear Calc Estimated GFR Random Glucose Lactic Acid Fup @ 2Hr 2.6 H* Lactic Acid Fup @ 4Hr 2.0 Calcium Phosphorus Magnesium Total Bilirubin AST ALT Alkaline Phosphatase Total Protein Albumin 03/01/21 06:04 MCV MCH MCHC RDW Plt Count MPV Absolute Nucleated RBC Nucleated RBC % (auto) Anion Gap 12 Estim Creat Clear Calc 69.1 Estimated GFR 47 Random Glucose 111 Lactic Acid Fup @ 2Hr Lactic Acid Fup @ 4Hr Calcium 8.5 D Phosphorus 1.5 L Magnesium 1.9 Total Bilirubin 0.2 AST 142 H ALT 154 H Alkaline Phosphatase 102 Total Protein 6.1 L Albumin 3.5 Microbiology Microbiology Results: Microbiology 02/27/21 19:24 Blood Culture - Preliminary Blood - Venous No growth after 24 hours. 02/27/21 19:24 Blood Culture - Preliminary Blood - Venous No growth after 24 hours. Assessment and Plan (1) Brain lesion: Status: Acute (2) Myocardial injury: Status: Acute (3) Hypertensive urgency: Status: Acute (4) Acute metabolic encephalopathy: Status: Acute (5) Substance abuse: Status: Acute (6) Acute renal failure: Status: Acute Assessment and Plan: 35 year female admitted throught ICU with hyperkalemia, elevated troponin I and found to have PE, SERGIO, subacute cerebral infarct yet assymptomatic. 1AKI--probably pre renal, resolved. 2Elevated troponin--probably related to cocaine use, no chest pain hemodynamically stable 3. 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 Remarkably asysmptomatic 4 Polysubstance abuse, including cocaine and tobacco. CARE consult 5. Uncontrolled hypertension.?Uncontrolled HTN, improved, continue Losartan, add Norvasc ?6. Bilateral PE--etiology unclear--may need hypercoag w/u, continue Lovenox. ?7. Elevated troponins, albeit with elevated renal indices.? Possible NSTEMI.? Demand ischemia 2? hypertensive crisis and/or cocaine use.? Discussed with Dr. Elizondo.? No anticoagulation recommended.? ?7. Rhabdomyolysis.--resolved ?8. Acute kidney injur--likely pre renal and resolvingt. ?9. Acute hepatitis (transaminase elevation) of unknown etiology.? f/u hepatitis serolog ?10. Metabolic acidosis.? Most likely 2? combination of kidney disease, lactic acidosis, resolved ?11. Lactic acidosis.? Type B (i.e. not 2? shock or sepsis). ?12. Leukocytosis.? No source identified.? U/A is negative.? Blood cultures pending.? Chest CT is normal.? She looks entierely well and nontoxic.? Quick SOFA score 0. ?No indication for antibiotics at this time, continue following. Quality Stroke Does the patient have a stroke diagnosis?: No VTE Prior VTE?: No VTE Risk Level:: Medical - moderate - high VTE Device Contraindication: N/A - Device Ordered VTE Drug Contraindication: N/A - Med Ordered
[2021-03-01 19:26] LABS: Hematocrit 36.9 % (37-47); Hemoglobin 11.8 g/dl (12.0-16.0); Mean Corpuscular Hemoglobin 26.1 pg (27.0-33.0); Mean Corpuscular Volume 81.6 fL (80-98); Mean Platelet Volume 10.2 fL (9.4-12.3); Platelet Count 311 X10*3/uL (160-400); Red Blood Count 4.52 X10*6/uL (4.20-5.50); Red Cell Distribution Width 14.7 % (11.0-16.0)
[2021-03-01] MEDS: amLODIPine Besylate 5 MG TABLET PO (19:27)
[2021-03-01] MEDS: Zolpidem Tartrate 5 MG TABLET PO (20:59)
[2021-03-02] VITALS (7 sets, daily range): BP systolic 133–180; BP diastolic 95–104; PULSE 70–80; RESP 16–20; TEMP 36.4–37; O2SAT 94–97
[2021-03-02] MEDS: clonazePAM 0.5 MG TABLET PO ×2 (03:59→20:48)
[2021-03-02 07:32] LABS: Anion Gap 15 (12-20); Blood Urea Nitrogen 9 mg/dL (9-16); Carbon Dioxide 27 mmol/L (22-29); Chloride 101 mmol/L (96-108); Creatinine Clr Calc Pharmacy 86.7; Estimated Glomerular Filt Rate > 60; Glucose Random 111 mg/dL (60-115); Potassium 2.8 mmol/L (3.3-5.1); Sodium 140 mmol/L (135-145)
[2021-03-02] MEDS: Pantoprazole Sodium 40 MG/10 ML VIAL IVPUSH (08:36)
[2021-03-02] MEDS: PARoxetine HCL 10 MG TABLET PO (08:36)
[2021-03-02] MEDS: Aspirin 81 MG TAB.CHEW PO (08:36)
[2021-03-02] MEDS: ARIPiprazole 10 MG TABLET PO (08:36)
[2021-03-02] MEDS: Enoxaparin Sodium 100 MG/ML SYRINGE 95 MG SUBCUT ×2 (08:36→20:48)
[2021-03-02] MEDS: Losartan Potassium 50 MG TABLET 100 MG PO (08:37)
[2021-03-02] MEDS: amLODIPine Besylate 5 MG TABLET PO (08:37)
[2021-03-02 08:38] LABS: Hematocrit 38.1 % (37-47); Hemoglobin 12.4 g/dl (12.0-16.0); Mean Corpuscular HGB Conc 32.5 g/dl (31.0-35.0); Mean Corpuscular Hemoglobin 26.6 pg (27.0-33.0); Mean Corpuscular Volume 81.6 fL (80-98); Mean Platelet Volume 10.8 fL (9.4-12.3); NRBC Pct Auto 0.1 /100WBC (0.0-0.2); Platelet Count 328 X10*3/uL (160-400); Red Blood Count 4.67 X10*6/uL (4.20-5.50); Red Cell Distribution Width 14.7 % (11.0-16.0); White Blood Count 19.1 X10*3/uL (4.8-10.8)
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
--- NOTE | 2021-03-02 11:35 | P.PNIM_ITS ---
Subjective Subjective Date of Service: 03/02/21 Interval History: F/u on stroke, SERGIO, myocardial injury, uncontrolled HTN Review of Systems Gen: no fever Resp: no sob, no cough CV: no chest, no GRIFFIN, no leg edema GI: No n/v, no abd pain Neuro: No confusion Physical Exam Vital Signs: Vital Signs: Last Vital Signs Temp 98.5 F 03/02/21 11:23 Pulse 77 03/02/21 11:23 Resp 16 03/02/21 11:23 BP 133/95 H 03/02/21 11:23 Pulse Ox 94 03/02/21 11:23 Oxygen Flow Rate 2 02/27/21 23:20 Body Mass Index 33.0 General: AO X 3, no acute distress Resp: CTA bilateral CVS: S1,S2,RRR GI: +BS, NT, no distention Skin: No rash Neuro: motor grossly intact Psych: appropriate affect Objective Data Active Medications Amlodipine Besylate (Amlodipine Besylate 5 Mg Tablet) 5 mg PO DAILY [facility]; Protocol Last Admin: 03/02/21 08:37 Dose: 5 mg Documented by: BART Aripiprazole (Aripiprazole 10 Mg Tablet) 10 mg PO DAILY [facility] Last Admin: 03/02/21 08:36 Dose: 10 mg Documented by: BART Aspirin (Aspirin 81 Mg Tab.Chew) 81 mg PO DAILY [facility] Last Admin: 03/02/21 08:36 Dose: 81 mg Documented by: BART Clonazepam (Clonazepam 0.5 Mg Tablet) 0.5 mg PO BID PRN PRN Reason: Anxiety Last Admin: 03/02/21 03:59 Dose: 0.5 mg Documented by: BRENTON Enoxaparin Sodium (Enoxaparin Sodium 100 Mg/Ml Syringe) 95 mg 1 mg/kg (95 mg) SUBCUT Q12H [facility] Last Admin: 03/02/21 08:36 Dose: 95 mg Documented by: BART Losartan Potassium (Losartan Potassium 50 Mg Tablet) 100 mg PO DAILY [facility]; Protocol Last Admin: 03/02/21 08:37 Dose: 100 mg Documented by: BART Pantoprazole Sodium (Pantoprazole Sodium 40 Mg/10 Ml Vial) 40 mg IVPUSH DAILY [facility] Last Admin: 03/02/21 08:36 Dose: 40 mg Documented by: BART Paroxetine HCl (Paroxetine Hcl 10 Mg Tablet) 10 mg PO DAILY [facility] Last Admin: 03/02/21 08:36 Dose: 10 mg Documented by: BART Zolpidem Tartrate (Zolpidem Tartrate 5 Mg Tablet) 5 mg PO BEDTIME [facility] Last Admin: 03/01/21 20:59 Dose: 5 mg Documented by: BRENTON Labs CBC & Chem 7: 03/02/21 06:03 03/02/21 06:03 Labs: Laboratory Results - last 24 hr 02/27/21 02/27/21 02/28/21 17:43 22:00 05:36 MCV MCH MCHC RDW Plt Count MPV Absolute Nucleated RBC Nucleated RBC % (auto) Potassium 6.3 H* 4.5 D 4.3 Anion Gap Estim Creat Clear Calc Estimated GFR Random Glucose Calcium 03/01/21 03/01/21 03/02/21 06:04 19:20 06:03 MCV 81.6 MCH 26.1 L MCHC 32.0 RDW 14.7 Plt Count 311 MPV 10.2 Absolute Nucleated RBC 0.000 Nucleated RBC % (auto) 0.0 Potassium 3.5 2.8 L Anion Gap 15 Estim Creat Clear Calc 86.7 Estimated GFR > 60 Random Glucose 111 Calcium 9.0 03/02/21 06:03 MCV 81.6 MCH 26.6 L MCHC 32.5 RDW 14.7 Plt Count 328 MPV 10.8 Absolute Nucleated RBC 0.020 H Nucleated RBC % (auto) 0.1 Potassium Anion Gap Estim Creat Clear Calc Estimated GFR Random Glucose Calcium Microbiology Microbiology Results: Microbiology 02/27/21 19:24 Blood Culture - Preliminary Blood - Venous No growth after 48 hours. 02/27/21 19:24 Blood Culture - Preliminary Blood - Venous No growth after 48 hours. Assessment and Plan (1) Brain lesion: Status: Acute (2) Myocardial injury: Status: Acute (3) Hypertensive urgency: Status: Acute (4) Acute metabolic encephalopathy: Status: Acute (5) Substance abuse: Status: Acute (6) Acute renal failure: Status: Acute Assessment and Plan: 35 year female admitted throught ICU with hyperkalemia, elevated troponin, uncontrolled HTN, cocaine useI and found to have PE, SERGIO, subacute cerebral infarct yet assymptomatic, myocardia in 1AKI--likely pre renal, and completly resolved. 2Elevated troponin--probably related to cocaine use, no chest pain hemodynamically stable, seen by cardiology and no further work at this time. Echo is essentially unremarkable. 3.Old and subacute cerebral infarcts, assymptomatic. Asking Neurology to see if needs further work. For now control BP, ASA, Statin 4 Polysubstance abuse, including cocaine and tobacco. CARE consult 5. Uncontrolled hypertension.?Uncontrolled HTN, improved, continue Losartan, Norvasc added and BP is much better ?6. Bilateral PE--etiology unclear--may need hypercoag w/u, continue Lovenox.. Hematology consult tomorrow ?7. Rhabdomyolysis.--resolved ?9. Acute hepatitis (transaminase elevation) of unknown etiology.? f/u hepatitis serolog, still pending ?10. Metabolic acidosis.? Most likely 2? combination of kidney disease, lactic acidosis, resolved ?11. Lactic acidosis.? Type B (i.e. not 2? shock or sepsis). ?12. Leukocytosis.? No source identified.? U/A is negative.? Blood cultures pending.? Chest CT is normal.? She looks entierely well and nontoxic.? Quick SOFA score 0. ?No indication for antibiotics at this time, continue following. Slightly lower today Quality Stroke Does the patient have a stroke diagnosis?: No VTE Prior VTE?: No VTE Risk Level:: Medical - moderate - high VTE Device Contraindication: N/A - Device Ordered VTE Drug Contraindication: N/A - Med Ordered
[2021-03-02] MEDS: Zolpidem Tartrate 5 MG TABLET PO (20:48)
[2021-03-03] VITALS (8 sets, daily range): BP systolic 140–152; BP diastolic 90–102; PULSE 79–105; RESP 18–20; TEMP 36.1–37; O2SAT 96–99; BMI 33.7
[2021-03-03] MEDS: Enoxaparin Sodium 100 MG/ML SYRINGE 95 MG SUBCUT ×2 (09:37→20:25)
[2021-03-03] MEDS: amLODIPine Besylate 5 MG TABLET PO (09:38)
[2021-03-03] MEDS: ARIPiprazole 10 MG TABLET PO (09:38)
[2021-03-03] MEDS: Aspirin 81 MG TAB.CHEW PO (09:38)
[2021-03-03] MEDS: PARoxetine HCL 10 MG TABLET PO (09:38)
[2021-03-03] MEDS: Losartan Potassium 50 MG TABLET 100 MG PO (09:39)
--- NOTE | 2021-03-03 15:00 | P.PNIM_ITS ---
Subjective Subjective Date of Service: 03/03/21 Interval History: f/u SERGIO, uncontrolled HTN, PE--Feels much better Review of Systems Gen: no fever Resp: no sob, no cough CV: no chest, no GRIFFIN, no leg edema GI: No n/v, no abd pain Neuro: No confusion Physical Exam Vital Signs: Vital Signs: Last Vital Signs Temp 97.5 F 03/03/21 11:08 Pulse 84 03/03/21 11:08 Resp 18 03/03/21 11:08 BP 140/90 H 03/03/21 11:08 Pulse Ox 97 03/03/21 11:08 Oxygen Flow Rate 2 02/27/21 23:20 Body Mass Index 33.7 General: AO X 3, no acute distress Resp:? CTA bilateral CVS: S1,S2,RRR GI: +BS, NT, no distention Skin: No rash Neuro:? motor grossly intact Psych: appropriate affect Objective Data Active Medications Amlodipine Besylate (Amlodipine Besylate 5 Mg Tablet) 5 mg PO DAILY [facility]; Protocol Last Admin: 03/03/21 09:38 Dose: 5 mg Documented by: STEPHY Aripiprazole (Aripiprazole 10 Mg Tablet) 10 mg PO DAILY [facility] Last Admin: 03/03/21 09:38 Dose: 10 mg Documented by: STEPHY Aspirin (Aspirin 81 Mg Tab.Chew) 81 mg PO DAILY [facility] Last Admin: 03/03/21 09:38 Dose: 81 mg Documented by: STEPHY Clonazepam (Clonazepam 0.5 Mg Tablet) 0.5 mg PO BID PRN PRN Reason: Anxiety Last Admin: 03/02/21 20:48 Dose: 0.5 mg Documented by: HILARY Enoxaparin Sodium (Enoxaparin Sodium 100 Mg/Ml Syringe) 95 mg 1 mg/kg (95 mg) SUBCUT Q12H [facility] Last Admin: 03/03/21 09:37 Dose: 95 mg Documented by: STEPHY Losartan Potassium (Losartan Potassium 50 Mg Tablet) 100 mg PO DAILY [facility]; Protocol Last Admin: 03/03/21 09:39 Dose: 100 mg Documented by: STEPHY Paroxetine HCl (Paroxetine Hcl 10 Mg Tablet) 10 mg PO DAILY [facility] Last Admin: 03/03/21 09:38 Dose: 10 mg Documented by: STEPHY Zolpidem Tartrate (Zolpidem Tartrate 5 Mg Tablet) 5 mg PO BEDTIME REY Last Admin: 03/02/21 20:48 Dose: 5 mg Documented by: HILARY Labs CBC & Chem 7: 03/02/21 06:03 03/02/21 06:03 Assessment and Plan (1) Brain lesion: Status: Acute (2) Myocardial injury: Status: Acute (3) Hypertensive urgency: Status: Acute (4) Acute metabolic encephalopathy: Status: Acute (5) Substance abuse: Status: Acute (6) Acute renal failure: Status: Acute Assessment and Plan: 35 year female admitted throught ICU with hyperkalemia, elevated troponin, uncontrolled HTN, cocaine useI and found to have PE, SERGIO, subacute cerebral infarct yet assymptomatic, myocardia in 1AKI--likely pre renal, and completly resolved. 2Elevated troponin--probably related to cocaine use, no chest pain hemodynamically stable, seen by cardiology and no further work at this time. Echo is essentially unremarkable. 3.Old and subacute cerebral infarcts, assymptomatic. Asking Neurology to see if needs further work. For now control BP, ASA, Statin. Neuro is recommending MRI of head, probably tomorrow 4 Polysubstance abuse, including cocaine and tobacco. CARE consult 5. Uncontrolled hypertension.?Uncontrolled HTN, improved, continue Losartan, Norvasc added and BP is much better ?6. Bilateral PE--etiology unclear--may need hypercoag w/u, continue Lovenox.. Hematology consult tomorrow, consider CTA to be sure ?7. Rhabdomyolysis.--resolved ?9. Acute hepatitis (transaminase elevation) of unknown etiology.? f/u hepatitis serolog, still pending ?10. Metabolic acidosis.? Most likely 2? combination of kidney disease, lactic acidosis, resolved ?11. Lactic acidosis.? Type B (i.e. not 2? shock or sepsis). ?12. Leukocytosis.? No source identified.? U/A is negative.? Blood cultures pending.? Chest CT is normal.? She looks entierely well and nontoxic.? Quick SOFA score 0. ?No indication for antibiotics at this time, continue following. Slightly lower today 13. Hypokalemia--recheck labs today Quality Stroke Does the patient have a stroke diagnosis?: No VTE Prior VTE?: No VTE Risk Level:: Medical - moderate - high VTE Device Contraindication: N/A - Device Ordered VTE Drug Contraindication: N/A - Med Ordered
[2021-03-03 15:27] LABS: Hematocrit 45.7 % (37-47); Hemoglobin 14.9 g/dl (12.0-16.0); Mean Corpuscular HGB Conc 32.6 g/dl (31.0-35.0); Mean Corpuscular Hemoglobin 26.3 pg (27.0-33.0); Mean Corpuscular Volume 80.6 fL (80-98); Mean Platelet Volume 10.3 fL (9.4-12.3); NRBC Pct Auto 0.2 /100WBC (0.0-0.2); Platelet Count 356 X10*3/uL (160-400); Red Blood Count 5.67 X10*6/uL (4.20-5.50); Red Cell Distribution Width 14.5 % (11.0-16.0); White Blood Count 17.2 X10*3/uL (4.8-10.8)
[2021-03-03 15:46] LABS: Anion Gap 16 (12-20); Blood Urea Nitrogen 15 mg/dL (9-16); Calcium 9.3 mg/dL (8.4-10.2); Carbon Dioxide 27 mmol/L (22-29); Chloride 99 mmol/L (96-108); Creatinine Clr Calc Pharmacy 79.1; Estimated Glomerular Filt Rate 54; Glucose Random 182 mg/dL (60-115); Sodium 139 mmol/L (135-145)
[2021-03-03] MEDS: clonazePAM 0.5 MG TABLET PO (20:27)
[2021-03-03] MEDS: Zolpidem Tartrate 5 MG TABLET PO (20:27)
[2021-03-04 04:00] VITALS: BP 152/107; PULSE 90; RESP 20; TEMP 36.4; O2SAT 97
[2021-03-04 04:16] LABS: HBc Num1 0.16 S/CO (0.00-0.79); HBsAGNum1 0.22 S/CO (0.00-0.99); Hepatitis B Core Antibody Nonreactive (Nonreactive); Hepatitis B Surface Antigen Negative (Negative)
[2021-03-04 04:30] LABS: HBS Num1 > 1000.00 mIU/mL (0-7.99); ~Hepatitis B Surface Antibody REACTIVE (Nonreactive); ~Hepatitis C Antibody Nonreactive (Nonreactive)
[2021-03-04 05:19] VITALS: BMI 32.3
[2021-03-04 07:04] VITALS: BP 128/81; PULSE 93; RESP 18; TEMP 36; O2SAT 98
[2021-03-04 08:10] VITALS: BP 128/81; PULSE 93
[2021-03-04] MEDS: amLODIPine Besylate 5 MG TABLET PO (08:10)
[2021-03-04] MEDS: ARIPiprazole 10 MG TABLET PO (08:10)
[2021-03-04 08:11] VITALS: BP 128/81; PULSE 93
[2021-03-04] MEDS: Enoxaparin Sodium 100 MG/ML SYRINGE 95 MG SUBCUT (08:11)
[2021-03-04] MEDS: PARoxetine HCL 10 MG TABLET PO (08:11)
[2021-03-04] MEDS: Losartan Potassium 50 MG TABLET 100 MG PO (08:11)
[2021-03-04] MEDS: Aspirin 81 MG TAB.CHEW PO (08:11)
--- NOTE | 2021-03-04 10:35 | PC.NURSE ---
Patient sent to MRI in wheelchair with transporters.
[2021-03-04 12:00] VITALS: BP 137/93; PULSE 93; RESP 20; TEMP 36.7; O2SAT 100
--- NOTE | 2021-03-04 12:36 | MHC.CM.PN ---
Met with Patient this am. She staed that she lives in a [facility] group home apt on [address]. The group home was called to confirm availability [place] from [facility]. T/W spoke with Gian([phone]). He stated that she is receiving services at the group home. He also verified that she does have an apt @ [place]. The patient had a + Toxicology screen Fentanyl and Cocaine were both +. [facility] was contacted. T/W spoke with Orin about the case ([phone]). Orin confirmed an open file in [facility]. The pts nursery worker is Sarah Chan. A Phone call was received from the case sealer. She is coming in to see the pt to offer more support/services. CM will follow.
[2021-03-04 15:13] VITALS: BP 137/96; PULSE 101; RESP 18; TEMP 36.8; O2SAT 98
--- NOTE | 2021-03-04 15:45 | PM.HEMONCCN ---
Subjective - Subjective Chief complaint: None Patient: new to practice Consult date: 03/04/21 Requesting Physician: Dr. Valdez Primary Care Provider: Unknown Physician HPI - Consult Narrative Reason for consult: High probability V/Q scan Narrative: Brad Barraza is a 35 year old female admitted on 02/27/2021 for hypoxemia and acute kidney injury. She is a drug user and had been using cocaine. Denies IV drug use. Was elevated and therefore a V/Q scan was performed which was read as moderate to high probability for pulmonary emboli. She was started on anticoagulation with heparin. COVID testing was negative. Her head CT also showed subacute infarctions, cardioembolic etiology was suspected. Troponins were quite elevated and cardiac consultation was obtained. Coronary vasospasms secondary to cocaine use was suspected as cause of subendocardial ischemia. EKG showed normal sinus rhythm, possible anterior infarct, Echocardiogram was normal. At this time patient feels well and wants to go home. Review of Systems - Constitutional Denies chills, Denies fever(s), Denies weight loss - Eyes Reports blurry vision - Cardiovascular Denies chest pain, Denies foot swelling - Respiratory Denies cough, Denies hemoptysis, Denies pain with cough, Denies dyspnea - Gastrointestinal Denies abdominal pain - Musculoskeletal Denies no additional musculoskeletal complaints, Denies joint pain - Neurologic Reports no additional neurologic complaints, Reports headache(s) Oncology Screenings - ECOG Performance Status ECOG Performance Status: 1 [facility] Medical History: Medical History (Last Reviewed 02/28/21 @ 15:04 by Alexey Elizondo MD) HTN (hypertension) Social History: Social History (Last Reviewed 02/28/21 @ 15:04 by Alexey Elizondo MD) Living Situation History: Household Members Other:: skilled nursing Housing Other:: skilled nursing: [place] Do you presently have visiting nurse or other home services: No Tobacco History: Patient Tobacco Use Status: Current someday Tobacco Tobacco use type: Cigarette Cigarettes Per Day: 20 Years Smoked: 24 Smoked in Last 30 Days: Yes e-Cigarette/Vaping Use: Currently Using Frequency of e-Cigarette/Vaping use: every so often Patient Interested in Nicotine Replacement: Yes Patient Given Instructions on How to Stop Smoking: No Second Hand Smoke Exposure: Yes Substance Use History: Use of substances other than those prescribed or required for medical reasons: Yes Substance Use Type: Crack/Cocaine Substance Use Frequency: Chronic Longstanding Last Used Substance: Just Prior to Admission Last Used Substance Other:: recently cut back, but left her with kids and started using more Currently Displaying Signs/Symptoms of Drug Intoxication Withdrawal: No Domestic Abuse History: Have you been hit, kicked, punched, or otherwise hurt by someone within the past year? If so, by whom?: No Do you feel safe in your current relationship?: Yes Is there a partner from a previous relationship who is making you feel unsafe now?: No Are you made to feel afraid or neglected: No Healthcare Practices: Spiritual Healthcare Practices: na Worship Healthcare Practices: na Cultural Healthcare Practices: na Advance Directives: Advance Directives: No Advance Directives Information Provided: No Homicidal Assessment: Do you have thoughts of harming others: None Do you have a plan to hurt others: No Plan Nutrition Assessment: Recently lost weight without trying: No Patient : No : No Poor oral hygiene: No Occupation Assessmet: service: No Current occupational status: unemployed Home Medications and Allergies Current Medications: Current Medications Generic Name Dose Route Start Last Admin Trade Name Freq PRN Reason Stop Dose Admin Amlodipine Besylate 5 mg 03/01/21 19:00 03/04/21 08:10 Amlodipine Besylate 5 Mg Tablet PO 5 mg DAILY REY Administration Protocol Aripiprazole 10 mg 02/28/21 13:45 03/04/21 08:10 Aripiprazole 10 Mg Tablet PO 10 mg DAILY REY Administration Aspirin 81 mg 02/28/21 09:00 03/04/21 08:11 Aspirin 81 Mg Tab.Chew PO 81 mg DAILY REY Administration Clonazepam 0.5 mg 02/28/21 13:37 03/03/21 20:27 Clonazepam 0.5 Mg Tablet PO 0.5 mg BID PRN Administration Anxiety Enoxaparin Sodium 95 mg 02/28/21 20:00 03/04/21 08:11 Enoxaparin Sodium 100 Mg/Ml Syringe 1 mg/kg (95 mg) 95 mg SUBCUT Administration Q12H REY Losartan Potassium 100 mg 02/28/21 13:45 03/04/21 08:11 Losartan Potassium 50 Mg Tablet PO 100 mg DAILY REY Administration Protocol Paroxetine HCl 10 mg 02/28/21 13:45 03/04/21 08:11 Paroxetine Hcl 10 Mg Tablet PO 10 mg DAILY REY Administration Zolpidem Tartrate 5 mg 02/28/21 21:00 03/03/21 20:27 Zolpidem Tartrate 5 Mg Tablet PO 5 mg BEDTIME REY Administration Home Medications Medication Instructions Recorded Confirmed Type aripiprazole 10 mg tablet 1 tab PO DAILY 02/28/21 02/28/21 History clonazepam 0.5 mg tablet 1 tab PO BID PRN 02/28/21 02/28/21 History losartan 100 mg tablet 1 tab PO DAILY 02/28/21 02/28/21 History paroxetine HCl 10 mg tablet 1 tab PO DAILY 02/28/21 02/28/21 History sumatriptan succinate 100 mg tablet 1 tab PO 02/28/21 History zolpidem 10 mg tablet 1 tab PO BEDTIME 02/28/21 02/28/21 History Allergies Allergy/AdvReac Type Severity Reaction Status Date / Time No Known Allergies Allergy Verified 02/27/21 16:33 Physical Exam Vital signs: Vital Signs Temp 98.2 F 03/04/21 15:13 Pulse 101 H 03/04/21 15:13 Resp 18 03/04/21 15:13 BP 137/96 H 03/04/21 15:13 Pulse Ox 98 03/04/21 15:13 Intake & Output 03/03/21 03/04/21 03/04/21 18:59 06:59 18:59 Other: Last Bowel Movement 03/03/21 Weight 90.7 kg [place] Weight in Grams [id number] Weight 90.7 kg - Constitutional Present: no acute distress - Routine HEENT Exam Head: Present: normal inspection Eye: Present: EOMI, normal appearance - Routine Neck Exam Absent: lymphadenopathy - Routine Respiratory Exam Present: CTAB - Routine Cardiovascular Exam Cardiovascular: Present: S1, S2 - Routine Abdominal Exam Present: soft - Routine Extremities Exam Absent: calf tenderness, pedal edema - Routine Skin Exam Present: intact. Absent: cyanosis - Routine Neurological Exam Present: alert, oriented X3 Hem/Onc Consult Result - Labs CBC & Chem 7: 03/03/21 15:06 03/03/21 15:00 Labs: BMP 03/03/21 15:00 Sodium 139 Potassium 3.0 L Chloride 99 Carbon Dioxide 27 BUN 15 D Creatinine 1.13 Calcium 9.3 Assessment and Plan Patient Active problem list reviewed?: Yes (1) Chest pain with high probability of pulmonary embolism Status: Acute Assessment and plan: 1. This is a 35-year-old woman was admitted with hypoxemia, elevated D-dimer and high probability V/Q scan. She did not undergo CT angiogram because of acute kidney injury. She has been started on anticoagulation since 02/28/2021. She is on Lovenox 1 mg/kg b.i.d.. She can be switched to Eliquis. She was also noted to have multiple subacute infarcts on CT brain, cardioembolic source suspected. Transthoracic echocardiogram was normal and EKG did not show evidence of atrial fibrillation. Lower extremity Doppler was negative for DVT. She is a smoker and drug user. She was strongly advised about stopping drug use as well as smoking cessation. No role of thrombophilia workup. I will see her in follow-up upon discharge. I thank you for this consultation. - Time Spent With Patient Time Spent with Patient (in minutes): 25
--- NOTE | 2021-03-04 15:57 | P.DS_ITS ---
DS: Providers Provider Date of Service: 03/04/21 Date of admission: 02/27/21 23:20 Primary care physician: Unknown Physician Consults: 02/27/21 23:13 Consult to Cardiology Stat Consulting Provider: Juliette Ayers Reason for consultation: ? N stemi Has provider been notified: Yes 02/28/21 13:59 Consult to Cardiology Stat Consulting Provider: Alexey Elizondo Reason for consultation: Elevated troponin Has provider been notified: Yes 03/02/21 08:14 Consult to Neurology Routine Consulting Provider: [facility] Reason for consultation: multiple subacute stroke Has provider been notified: No 03/04/21 14:57 Consult to Hematology / Oncology Routine Consulting Provider: Margret De Leon Reason for consultation: PE DS: Diagnosis Discharge Diagnosis (1) Brain lesion: Status: Acute (2) Myocardial injury: Status: Acute (3) Hypertensive urgency: Status: Acute (4) Acute metabolic encephalopathy: Status: Acute (5) Substance abuse: Status: Acute (6) Acute renal failure: Status: Acute DS: Summary Hospital Course Hospital Course: Hospital course including ICU course The patient is a 32-year-old female w PMHx of obesity, hypertension, and cocaine use.? She told me that she?s had HTN for a long time, and it?s never been well controlled.? She has been living at a local detention for approximately a year with her 4 children since she lost her job last year during the pandemic.? She states that for a while she was not using any drugs and then she decided to take a couple lines of cocaine yesterday.? She realized she was doing wrong wasting her money on that and asked her director agency [employer] for help with detox.? She was therefore brought to the [facility] ED for evaluation.? Only complaint in the ED was of headache.? She denied chest pain or SOB.? The patient has not had COVID vaccination. In the ED, vital signs were normal, but she was not acting herself.? General physical exam was unremarkable.? Lab workup was notable for a white count of 22.6, DDimer 401, BUN/creat 22/1.6, potassium 6.3, bicarb 22, moderate transaminase elevation with normal bilirubin, albumin 4.6, normal beta hCG, lactic acid 4.1, troponin of 87.? Venous blood gas showed 7.15/63/-7. ?Urinalysis showed 0 WBCs, 3+ blood, and 2+ urine protein.? Tox screen was positive for fentanyl and cocaine.? COVID was negative.? EKG showed no acute ischemic changes. Chest x-ray showed no acute disease.? Abdomen/pelvis CT were notable for hepatomegaly and an IUD in flipped position within the uterus. Head CT showed subacute infarct within the left posterior parasagittal parietal lobe, and old infarcts within the right occipital lobe, right cerebellum, and right external capsule. Chest CT showed no acute pathology.? Abdominal CT showed no acute findings.? Chest x-ray was also unremarkable.? She was given 2 L of IV fluids, ceftriaxone, Zosyn, Kayexalate, and glucose and insulin.? Repeat labs 4 hrs later showed unchanged renal indices, bicarb down to 20, potassium down to 4.5, lactate down to 3.9, troponin up to 241.? CPK was 11,000.? Noncontrast chest CT was normal. The patient remained hemodynamically stable with SpO2 mid to high 90s on room air.? She was admitted to the ICU because of the multiple metabolic findings, including the lactic acidosis, the acute renal failure with hyperkalemia, the troponin, and the cerebral infarcts.? She was put on aspirin, but in consultation with Cardiology, was not anticoagulated.? Antibiotics were not continued. She became hypertensive with diastolic blood pressures into the 120s.? She denied chest pain throughout this time.? On exam this morning, the patient looks entirely well and nontoxic, and has no complaints other than mild headache.? She has no neurologic deficits.? She was given metoprolol overnight.? Heart rate this morning is running 80s, sinus rhythm.? She?s had a few 1 second pauses on the heart rhythm monitor.? Blood pressure was up to 190s/130s range.? We gave her 200 mg oral labetalol.? Blood pressure came down to the 146/110 range.? Breathing easy with sat mid 90s. ?Afebrile.? No jugular venous distention with the head of the bed at 20-30 degrees.? Chest is clear.? She has no murmur or gallops.? Abdomen is benign.? She has no edema. LABORATORY DATA:? As below.? Notably, hemoglobin is down to 11.9 after volume resuscitation, white count is unchanged at 22, BUN and creatinine unchanged at 23/1.7, with bicarb 19, and potassium 4.3.? Phosphorus is only 2.4.? AST and ALT are pretty much unchanged, CPKs down to 8844, troponin is up to 377.? Peripheral venous blood gas this morning showed 7.36/37/-3.? Repeat EKG still shows no ischemic changes. ECHOCARDIOGRAM done at the bedside by the [facility], interpreted by me: ?Image quality:? Excellent.? Findings: ?1. Wall thickness probably normal or top normal. ?2. LV cavity size is normal, with normal LV systolic fxn with no RWMAs.? EF at least 50%. ?3. RV size normal. ?4. Atria probably normal ?5. AoV morphologically normal with no . ?6. MV morphologically normal. ?7. TV morphologically normal with trace TR by color jazmyne, with CWD jet measuring 2.3m/sec, or gradient of 21mm. ?8. IVC measured 2.3 cm, minimally contractile with inspiration.? Estimated CVP 15mm.? RVSP estimate 34mm. Hospital course by problems: 1AKI--likely pre renal, and completly resolved. 2Elevated troponin--probably related to cocaine use, no chest pain hemodynamically stable, seen by cardiology and no further work at this time. Echo is essentially unremarkable as above, has no chest pain or angiana. 3.Old and subacute cerebral infarcts, assymptomatic. Neuro recommended MRI with the following finding Foci of elevated diffusion signal and associated enhancement is seen in the left frontal lobe and right occipital lobe, most typical of infarcts in the subacute stage. Consider follow-up MRI in 6-8 weeks to document resolution of enhancement. ? Small chronic infarct is seen in the right cerebellum and in the right external capsule region. No evidence of acute infarction. Given the multiple vascular territories of subacute and chronic infarction a cardioembolic etiology is suspected. 4 Polysubstance abuse, including cocaine and tobacco. CARE consult 5.? Uncontrolled hypertension.?Uncontrolled HTN, improved, continue Losartan, Norvasc 5mg added and BP is much better ?6. Bilateral PE--etiology unclear--may need hypercoag w/u on outpatient basis, treated with Lovenox in the hospital and changing to Eliquis at discharge and will have hypercoag w/u by Hematology ?7. Rhabdomyolysis.--resolved ?9. Acute hepatitis (transaminase elevation) of unknown etiology.? f/u? hepatitis serolog, still pending ?10. Metabolic acidosis.? Most likely 2? combination of kidney disease, lactic acidosis, resolved ?11. Lactic acidosis.? Type B (i.e. not 2? shock or sepsis). ?12. Leukocytosis.? No source identified.? U/A is negative.? Blood cultures pending.? Chest CT is normal.? She looks entierely well and nontoxic.? Quick SOFA score 0. ?No indication for antibiotics at this time, continue following. Trending down, likely reactive. 13. Hypokalemia following Hyperkalemia, K 3 on 03/03 and given KCL 20 today, can check on outpatient basis Time Spent with Patient Time attestation: Total time spent providing and/or coordinating discharge services: Discharge coordination time: Greater than 30 minutes Quality: Stroke Does the patient have a stroke diagnosis?: Yes Reason for No Anti-thrombotic at DC: N/A - Med Ordered Reason for No Anticoagulant at DC: N/A - Med Ordered Reason Not Initiating IV-Tpa: Contraindicated Reason for No Anti-thrombotic by Day Two: N/A - Med Ordered Reason for No Statin at DC: N/A - Med Ordered Physical Exam Vital Signs: Vital Signs: Last Vital Signs Temp 98.2 F 03/04/21 15:13 Pulse 101 H 03/04/21 15:13 Resp 18 03/04/21 15:13 BP 137/96 H 03/04/21 15:13 Pulse Ox 98 03/04/21 15:13 Oxygen Flow Rate 2 02/27/21 23:20 Body Mass Index 32.3 DS: Data Data Completed and Pending Labs on day of discharge: Laboratory Results - last 24 hr 02/28/21 15:40 Hep Bs Antigen Negative Hep Bs Antibody REACTIVE Hep B Core Total Ab Nonreactive Hepatitis C Ab (EIA) Nonreactive Preliminary micro results at discharge 02/27/21 19:24 Blood Culture - Preliminary Blood - Venous No growth after 48 hours. 02/27/21 19:24 Blood Culture - Preliminary Blood - Venous No growth after 48 hours. Discharge Plan Discharge Anticipated Discharge Date/Time: 03/04/21 15:11 Patient Disposition: Home, Self-Care Discharge Diagnosis: SERGIO, pulmonary embolism, uncontrolled HTN, Referrals: Margret De Leon MD [Physician] - 1 Week (call for appointment) Physician,Unknown [Primary Care Provider] - 1 Week Discharge Medications: New amlodipine 5 mg Tablet 5 mg PO DAILY Qty: 30 RF: 0 aspirin 81 mg Tablet,Chewable 81 mg PO DAILY Qty: 30 RF: 0 atorvastatin [Lipitor] 20 mg tablet 20 mg PO BEDTIME Qty: 30 RF: 0 Eliquis DVT-PE Treat 30D Start 5 mg (74 tabs) tablets,dose pack See Rx Instructions .ROUTE .COMPLEX Qty: 74 RF: 0 Continued paroxetine HCl 10 mg tablet 1 tab PO DAILY RF: 0 sumatriptan succinate 100 mg tablet 1 tab PO RF: 0 clonazepam 0.5 mg tablet 1 tab PO BID PRN (Reason: Anxiety) RF: 0 zolpidem 10 mg tablet 1 tab PO BEDTIME RF: 0 losartan 100 mg tablet 1 tab PO DAILY RF: 0 aripiprazole 10 mg tablet 1 tab PO DAILY RF: 0 Discharge Orders: Discharge Order (Routine); Ordered 03/04/21 Ordered By: Ruel Valdez Diet: advance to usual diet Activity on Discharge: As tolerated Stand Alone Forms: Patient Portal Discharge page Care Plan Goals: prevent rehospitalization, control blood blood pressure, treat pulmonary embolism, avoid ilicit substances Health Concerns: Uncontrolled high blood blood pressure, pulmonary embolism, renal failure Plan of Treatment: Take blood pressure medication as directed Take ASA for stroke, Take Eliquis for blood clots in the lung (take 2tabs twice daily for 7 days (until 03/10/21, then take 1 tab twice daily after that Follow up with your doctor in a week, avoid ilicit substances Follow up with Dr. De Leon Assessment: As above Patient Instructions: Aspirin (By mouth), Amlodipine (By mouth), Atorvastatin (By mouth), Apixaban (By mouth), How to Stop Smoking (ED), How to Stop Smoking (GEN) Discharge Date/Time: 03/04/21 17:00
--- NOTE | 2021-03-04 16:16 | MHC.CM.PN ---
Patient is discharged to home no services.
[2021-03-05 08:56] LABS: ~HepC Num1 0.16 S/CO (0.00-0.79)
[2021-03-05 10:40] LABS: Hepatitis A Antibody IgM 0.15 Index (0-0.79); ~Hepatitis A Antibody IgM Nonreactive (Nonreactive)
== END 2021-03-04 17:00 | disposition home or self-care (01) | DRG 175 ==
LOC: HO.ED 22:28 → HO.EDOVER 23:34 → HO.ICU 23:57 → HO.IMC 02-28 18:48
PROVIDERS: Anesthesiology; Admitting Provider Physician Assistant Medical; Emergency Provider Internal Medicine; Visit Provider Internal Medicine
DX: I26.99 Other pulmonary embolism without acute cor pulmonale (principal); I63.9 Cerebral infarction, unspecified; N17.9 Acute kidney failure, unspecified; E87.2 Acidosis; M62.82 Rhabdomyolysis; H46.9 Unspecified optic neuritis; B17.9 Acute viral hepatitis, unspecified; I44.1 Atrioventricular block, second degree; F17.210 Nicotine dependence, cigarettes, uncomplicated; F19.10 Other psychoactive substance abuse, uncomplicated; I10 Essential (primary) hypertension; D72.829 Elevated white blood cell count, unspecified; G93.9 Disorder of brain, unspecified; E87.6 Hypokalemia; Z71.6 Tobacco abuse counseling; I16.0 Hypertensive urgency; Z59.0 Homelessness; Z20.822 Contact with and (suspected) exposure to COVID-19; Z79.899 Other long term (current) drug therapy
CPT/HCPCS: 36415; 70450; 70553; 71045; 71250; 74176; 78580; 80048; 80053; 80061; 80076; 80143; 80307; 81001; 82140; 82550; 82803; 83605; 83735; 83880; 84100; 84443; 84484; 84702; 85025; 85027; 85379; 85610; 85730; 86140; 86704; 86706; 86709; 86803; 87040; 87340; 87635; 93005; 93306; 93970; 96361; 96374; 96375; 99285; 99291; A9540; A9585; J0610; J0696; J1650; J2543